=== PATIENT | male | born 1970 | race Caucasian/White ===

== ENCOUNTER → 2016-11-21 | Outpatient (CLI) | payer OTHER ==
[2016-11-21 14:22] LABS: ALBUMIN 3.1 gm/dl (3.1-4.5); ALKALINE PHOSPHATASE 105 U/L (45-117); BILIRUBIN, TOTAL 0.2 mg/dl (0.2-1.0); BUN 27 mg/dl (7-24); CARBON DIOXIDE 29 mmol/L (21-32); CHLORIDE 108 mmol/L (98-107); EST GLOM FILT AFRICAN AMERICAN > 60 ml/min; GLUCOSE 105 mg/dL (65-99); POTASSIUM 4.5 mmol/L (3.5-5.1); SGOT/AST 74 IU/L (3-35); SGPT/ALT 104 U/L (12-78); SODIUM 143 mmol/L (136-145)
[2016-11-22 07:06] LABS: HEPATITIS C VIRUS ANTIBODY 0.1 s/co (0.0-0.9)
== END | disposition home or self-care (01) ==
LOC: LAB 13:01
PROVIDERS: Family Medicine
DX: M54.41 Lumbago with sciatica, right side (principal); M54.42 Lumbago with sciatica, left side; R94.5 Abnormal results of liver function studies

== ENCOUNTER → 2017-01-07 | Outpatient (CLI) | payer OTHER | END | disposition home or self-care (01) | LOC: US 09:48 | DX: R79.89 Other specified abnormal findings of blood chemistry (principal) ==

== ENCOUNTER → 2017-02-03 | Outpatient (CLI) | payer OTHER ==
[2017-02-03 13:57] LABS: ALKALINE PHOSPHATASE 141 U/L (45-117); BILIRUBIN, TOTAL 0.3 mg/dl (0.2-1.0); TOTAL PROTEIN 7.2 gm/dL (6.4-8.2)
[2017-02-03 14:03] LABS: BILIRUBIN, DIRECT < 0.1 mg/dL (0.0-0.2); SGOT/AST 62 IU/L (3-35); SGPT/ALT 112 U/L (12-78)
== END | disposition home or self-care (01) ==
LOC: LAB 13:13
PROVIDERS: Internal Medicine Gastroenterology
DX: R79.89 Other specified abnormal findings of blood chemistry (principal)

== ENCOUNTER → 2017-02-08 | Outpatient (CLI) | payer OTHER | END | disposition home or self-care (01) | LOC: MRI 13:50 | DX: M54.41 Lumbago with sciatica, right side (principal); M54.42 Lumbago with sciatica, left side; E11.40 Type 2 diabetes mellitus with diabetic neuropathy, unspecified ==

== ENCOUNTER → 2017-04-25 | Outpatient (CLI) | payer OTHER ==
[2017-04-25 19:43] LABS: BASO % 0.5 % (0.0-1.0); EOS # 0.2 10*3/uL (0.0-0.4); EOS % 2.5 % (1.0-4.0); HEMATOCRIT 35.8 % (42.0-52.0); HEMOGLOBIN 12.3 g/dl (14.0-18.0); LYMPH # 2.1 10*3/uL (1.3-4.4); LYMPH % 25.5 % (27.0-41.0); MEAN CELL VOLUME 85.9 fl (80.0-94.0); MEAN CORPUSCULAR HGB 29.5 pg (27.0-31.0); MEAN CORPUSCULAR HGB CONC 34.4 g/dl (33.0-37.0); MEAN PLATELET VOLUME 11.5 fl (9.6-12.3); MONO # 0.6 10*3/uL (0.1-1.0); NEUT # 5.3 10*3/uL (2.3-7.9); PLATELET COUNT AUTOMATED 209 10*3/uL (130-400); RED BLOOD COUNT 4.17 10*6/uL (4.50-5.90); RED CELL DISTRI WIDTH 13.9 % (0-14.5); WHITE BLOOD COUNT 8.3 10*3/uL (4.8-10.8)
[2017-04-25 20:05] LABS: ALBUMIN 3.5 gm/dl (3.1-4.5); BILIRUBIN, DIRECT 0.1 mg/dL (0.0-0.2); CREATININE 2.05 mg/dL (0.70-1.30); FREE T4 0.97 ng/dl (0.76-1.46); POTASSIUM 4.8 mmol/L (3.5-5.1); TOTAL PROTEIN 7.7 gm/dL (6.4-8.2)
[2017-04-25 20:10] LABS: THYROID STIM HORMONE (HS) 0.625 uIU/ml (0.358-4.75)
== END | disposition home or self-care (01) ==
LOC: LAB 19:11
PROVIDERS: Nurse Practitioner Family
DX: Z79.899 Other long term (current) drug therapy (principal); E55.9 Vitamin D deficiency, unspecified; E78.00 Pure hypercholesterolemia, unspecified

== ENCOUNTER → 2018-01-27 | Outpatient (CLI) | payer OTHER | END | disposition home or self-care (01) | LOC: LAB 12:56 | DX: M54.41 Lumbago with sciatica, right side (principal); M25.552 Pain in left hip; M25.551 Pain in right hip ==

== ENCOUNTER → 2018-03-02 | Outpatient (CLI) | payer OTHER ==
[2018-03-02 16:09] LABS: ALBUMIN 3.6 gm/dl (3.1-4.5); ALKALINE PHOSPHATASE 138 U/L (45-117); SGOT/AST 57 IU/L (3-35); SGPT/ALT 97 U/L (12-78); TOTAL PROTEIN 8.5 gm/dL (6.4-8.2)
[2018-03-02 16:12] LABS: BILIRUBIN, DIRECT < 0.1 mg/dL (0.0-0.2)
[2018-03-05 07:41] LABS: HBV QUANT 200000000 IU/mL (.); HEP B CORE AB TOTAL 006718 Positive (Negative); HEPATITIS B QNT See Final Results IU/mL (.); HEPATITIS B SURFACE AB 006395 Non Reactive (.); HEPATITIS B SURFACE AG Positive (Negative); HIV 1+2 AB + HIV1 P24 AG Non Reactive (Non Reactive)
[2018-03-05 17:10] LABS: AB TO HEPATITIS Be AG 006635 Negative (Negative)
[2018-03-08 16:12] LABS: HBV LOG10 8.301 (.)
== END | disposition home or self-care (01) ==
LOC: LAB 15:01
PROVIDERS: Specialist
DX: F19.10 Other psychoactive substance abuse, uncomplicated (principal); Z79.899 Other long term (current) drug therapy

== ENCOUNTER → 2018-07-06 | Outpatient (CLI) | payer OTHER ==
[2018-07-06 11:22] LABS: BASO % 0.4 % (0.0-1.0); EOS # 0.4 10*3/uL (0.0-0.4); EOS % 5.1 % (1.0-4.0); HEMATOCRIT 34.9 % (42.0-52.0); HEMOGLOBIN 11.2 g/dl (14.0-18.0); LYMPH % 27.7 % (27.0-41.0); MEAN CELL VOLUME 88.4 fl (80.0-94.0); MEAN CORPUSCULAR HGB 28.4 pg (27.0-31.0); MEAN CORPUSCULAR HGB CONC 32.1 g/dl (33.0-37.0); MEAN PLATELET VOLUME 11.3 fl (9.6-12.3); MONO # 0.7 10*3/uL (0.1-1.0); MONO % 10.1 % (3.0-9.0); NEUT # 4.1 10*3/uL (2.3-7.9); NEUT % 56.3 % (47.0-73.0); PLATELET COUNT AUTOMATED 196 10*3/uL (130-400); RED BLOOD COUNT 3.95 10*6/uL (4.50-5.90); RED CELL DISTRI WIDTH 14.4 % (0-14.5); WHITE BLOOD COUNT 7.2 10*3/uL (4.8-10.8)
[2018-07-06 11:51] LABS: ALBUMIN 3.3 gm/dl (3.1-4.5); CREATININE 2.01 mg/dL (0.70-1.30); POTASSIUM 5.5 mmol/L (3.5-5.1); TOTAL PROTEIN 8.2 gm/dL (6.4-8.2)
[2018-07-09 16:09] LABS: AB TO HEPATITIS Be AG 006635 Negative (Negative)
[2018-07-09 22:10] LABS: HEP B CORE AB TOTAL 006718 Positive (Negative); HEPATITIS Be ANTIGEN 006619 Positive (Negative)
[2018-07-10 00:05] LABS: HBV QUANT 111000000 IU/mL (.); HEPATITIS B QNT See Final Results IU/mL (.)
[2018-07-11 06:14] LABS: HEPATITIS B SURFACE AB 006395 Reactive (.); HEPATITIS B SURFACE AG Positive (Negative)
[2018-07-12 13:05] LABS: HBV LOG10 8.045 (.)
== END | disposition home or self-care (01) ==
LOC: LAB 10:50
PROVIDERS: Specialist
DX: B19.10 Unspecified viral hepatitis B without hepatic coma (principal); R94.5 Abnormal results of liver function studies

== ENCOUNTER → 2018-07-18 | Outpatient (CLI) | payer OTHER | END | disposition home or self-care (01) | LOC: US 11:00 | DX: K76.0 Fatty (change of) liver, not elsewhere classified (principal); B19.10 Unspecified viral hepatitis B without hepatic coma ==

== ENCOUNTER → 2019-06-03 | Outpatient (CLI) | payer OTHER ==
[2019-06-03 10:12] LABS: BASO % 0.4 % (0.0-1.0); EOS # 0.2 10*3/uL (0.0-0.4); EOS % 2.1 % (1.0-4.0); HEMATOCRIT 37.1 % (42.0-52.0); HEMOGLOBIN 12.6 g/dl (14.0-18.0); LYMPH # 1.9 10*3/uL (1.3-4.4); LYMPH % 21.4 % (27.0-41.0); MEAN CELL VOLUME 83.4 fl (80.0-94.0); MEAN CORPUSCULAR HGB 28.3 pg (27.0-31.0); MEAN PLATELET VOLUME 11.1 fl (9.6-12.3); MONO # 0.6 10*3/uL (0.1-1.0); MONO % 6.9 % (3.0-9.0); NEUT # 6.2 10*3/uL (2.3-7.9); NEUT % 68.5 % (47.0-73.0); PLATELET COUNT AUTOMATED 280 10*3/uL (130-400); RED BLOOD COUNT 4.45 10*6/uL (4.50-5.90); RED CELL DISTRI WIDTH 14.4 % (0-14.5); WHITE BLOOD COUNT 9.1 10*3/uL (4.8-10.8)
[2019-06-03 10:37] LABS: POTASSIUM 4.2 mmol/L (3.5-5.1)
[2019-06-03 11:14] LABS: ALBUMIN 2.9 gm/dl (3.1-4.5); TOTAL PROTEIN 7.8 gm/dL (6.4-8.2)
[2019-06-04 11:06] LABS: HEP B CORE AB TOTAL 006718 Positive (Negative)
[2019-06-04 16:08] LABS: AB TO HEPATITIS Be AG 006635 Negative (Negative)
[2019-06-05 07:08] LABS: HEPATITIS B SURFACE AB 006395 Reactive (.); HEPATITIS B SURFACE AG Positive (Negative); HEPATITIS Be ANTIGEN 006619 Positive (Negative)
[2019-06-20 11:06] LABS: HBV LOG10 7.905 (.); HBV QUANT 80300000 IU/mL (.); HEPATITIS B QNT See Final Results IU/mL (.)
== END | disposition home or self-care (01) ==
LOC: LAB 09:12
PROVIDERS: Internal Medicine Gastroenterology
DX: B97.10 Unspecified enterovirus as the cause of diseases classified elsewhere (principal)

== ENCOUNTER → 2019-06-11 | Outpatient (CLI) | payer OTHER | END | disposition home or self-care (01) | LOC: RAD 11:19 | DX: M85.88 Other specified disorders of bone density and structure, other site (principal); S82.91XD Unspecified fracture of right lower leg, subsequent encounter for closed fracture with routine healing; I10 Essential (primary) hypertension; X58.XXXD Exposure to other specified factors, subsequent encounter ==

== ENCOUNTER → 2019-07-01 | Outpatient (CLI) | payer OTHER | END | disposition home or self-care (01) | LOC: US 01:21 | DX: K76.0 Fatty (change of) liver, not elsewhere classified (principal); B19.10 Unspecified viral hepatitis B without hepatic coma; Z90.49 Acquired absence of other specified parts of digestive tract ==

== ENCOUNTER → 2019-07-16 | Outpatient (CLI) | payer OTHER ==
[2019-07-20 10:07] LABS: CREATININE,URINE 91.6 mg/dL (Not Estab.)
[2019-07-22 07:50] LABS: URINE VOLUME 2150 mL
== END | disposition home or self-care (01) ==
LOC: LAB 09:00
PROVIDERS: Internal Medicine Endocrinology, Diabetes & Metabolism
DX: E55.9 Vitamin D deficiency, unspecified (principal); M85.869 Other specified disorders of bone density and structure, unspecified lower leg

== ENCOUNTER → 2019-07-19 | Outpatient (CLI) | payer OTHER ==
[2019-07-19 13:07] LABS: ALBUMIN 2.7 gm/dl (3.1-4.5); CREATININE 1.67 mg/dL (0.70-1.30); PHOSPHOROUS 3.4 mg/dL (2.5-4.9); POTASSIUM 4.4 mmol/L (3.5-5.1); TOTAL PROTEIN 7.2 gm/dL (6.4-8.2)
[2019-07-19 15:22] LABS: PTH INTACT 109.9 pg/mL (18.5-88.0); VITAMIN D, 25-HYDROXY 21.3 ng/mL (30-100)
[2019-07-20 04:08] LABS: TOTAL PROTEIN, SERUM 6.4 g/dL (6.0-8.5)
[2019-07-20 05:10] LABS: IMMUNOGLOBULIN G, QNT 1533 mg/dL (700-1600); IMMUNOGLOBULIN M, QNT 62 mg/dL (20-172)
[2019-07-20 15:10] LABS: t-TRANSGLUTAMINASE (tTG) IGA <2 U/mL (0-3)
[2019-07-21 10:06] LABS: TESTOSTERONE FREE, (DIRECT) 8.3 pg/mL (7.2-24.0)
[2019-07-22 11:06] LABS: A/G RATIO 0.7 (0.7-1.7); ALBUMIN 2.7 g/dL (2.9-4.4); ALPHA-1-GLOBULIN 0.2 g/dL (0.0-0.4); ALPHA-2-GLOBULIN 0.9 g/dL (0.4-1.0); BETA GLOBULIN 1.2 g/dL (0.7-1.3); GAMMA GLOBULIN 1.4 g/dL (0.4-1.8); GLOBULIN, TOTAL 3.7 g/dL (2.2-3.9); M-SPIKE 0.3 g/dL (Not Observed)
[2019-07-22 14:07] LABS: IMMUNOFIXATION RESULT, SERUM Comment: (.)
== END | disposition home or self-care (01) ==
LOC: LAB 10:53
PROVIDERS: Internal Medicine Endocrinology, Diabetes & Metabolism
DX: M85.869 Other specified disorders of bone density and structure, unspecified lower leg (principal); E11.69 Type 2 diabetes mellitus with other specified complication; E55.9 Vitamin D deficiency, unspecified

== ENCOUNTER → 2019-08-30 | Outpatient (CLI) | payer OTHER ==
[2019-08-30 15:07] LABS: BILIRUBIN NEGATIVE (NEGATIVE); BLOOD 2+ (NEGATIVE); CLARITY CLEAR (CLEAR); COLOR YELLOW (YELLOW); GLUCOSE TRACE (NEGATIVE); KETONE NEGATIVE (NEGATIVE); LEUKO ESTERASE NEGATIVE (NEGATIVE); NITRITE NEGATIVE (NEGATIVE); SPECIFIC GRAVITY >= 1.030 (1.005-1.030); UROBILINOGEN 0.2 E.U./dl (0.2-1.0)
[2019-08-30 15:21] LABS: WBC 0-2 wbc/hpf (0-5)
[2019-08-30 15:22] LABS: BACTERIA 2+; EPITHELIAL CELLS 0-2; MUCOUS TRACE
[2019-08-30 15:29] LABS: ALBUMIN 2.4 gm/dl (3.1-4.5); CREATININE 2.29 mg/dL (0.70-1.30); PHOSPHOROUS 3.6 mg/dL (2.5-4.9); POTASSIUM 4.4 mmol/L (3.5-5.1)
[2019-08-31 10:07] LABS: MICRO ALBUMIN/CRE RATIO 4802.1 (0.0-30.0)
== END | disposition home or self-care (01) ==
LOC: LAB 13:41
PROVIDERS: Family Medicine
DX: E11.22 Type 2 diabetes mellitus with diabetic chronic kidney disease (principal); N18.3 Chronic kidney disease, stage 3 (moderate)

== ENCOUNTER 2019-11-07 06:41 | Emergency (ER) | payer OTHER ==
[~2019-11-07] VITALS: Ht 177.8 cm; Wt 136.1 kg
[2019-11-07 07:03] LABS: BASO % 0.3 % (0.0-1.0); EOS # 0.2 10*3/uL (0.0-0.4); EOS % 1.8 % (1.0-4.0); HEMATOCRIT 32.4 % (42.0-52.0); HEMOGLOBIN 10.9 g/dl (14.0-18.0); LYMPH # 1.7 10*3/uL (1.3-4.4); LYMPH % 14.6 % (27.0-41.0); MEAN CELL VOLUME 83.5 fl (80.0-94.0); MEAN CORPUSCULAR HGB 28.1 pg (27.0-31.0); MEAN CORPUSCULAR HGB CONC 33.6 g/dl (33.0-37.0); MEAN PLATELET VOLUME 10.4 fl (9.6-12.3); MONO % 8.8 % (3.0-9.0); NEUT # 8.7 10*3/uL (2.3-7.9); NEUT % 74.2 % (47.0-73.0); PLATELET COUNT AUTOMATED 320 10*3/uL (130-400); RED BLOOD COUNT 3.88 10*6/uL (4.50-5.90); RED CELL DISTRI WIDTH 14.2 % (0-14.5); WHITE BLOOD COUNT 11.7 10*3/uL (4.8-10.8)
[2019-11-07 07:12] LABS: ACT PARTIAL THROMBO TIME 29.5 SECONDS (20.0-32.1); INTERNATIONAL NORM RATIO 1.1 (2.0-3.5)
[2019-11-07 07:23] LABS: ALBUMIN 2.3 gm/dl (3.1-4.5); CREATININE 2.72 mg/dL (0.70-1.30); POTASSIUM 3.9 mmol/L (3.5-5.1); TOTAL PROTEIN 6.9 gm/dL (6.4-8.2)
[2019-11-07 07:30] LABS: TROPONIN I 0.474 ng/ml (<0.045)
[2019-11-07 09:32] VITALS: BP 156/76
== END 2019-11-07 09:44 | disposition short-term general hospital (02) ==
LOC: ED 06:41
PROVIDERS: Emergency Medicine
DX: I21.4 Non-ST elevation (NSTEMI) myocardial infarction (principal); J18.1 Lobar pneumonia, unspecified organism; E66.01 Morbid (severe) obesity due to excess calories; E11.9 Type 2 diabetes mellitus without complications; I11.0 Hypertensive heart disease with heart failure; I50.9 Heart failure, unspecified; E78.00 Pure hypercholesterolemia, unspecified; Z88.0 Allergy status to penicillin; Z88.2 Allergy status to sulfonamides

== ENCOUNTER 2020-03-27 14:56 | Inpatient (IN) | payer OTHER ==
[~2020-03-27] VITALS: Ht 177.8 cm; Wt 127.2 kg
[2020-03-27 15:02] VITALS: BP 189/88
[2020-03-27 16:15] VITALS: BP 144/76
[2020-03-27 16:45] VITALS: BP 137/63
[2020-03-27] MEDS ORDERED: POTASSIUM CHLO20 ME4 PO (16:59)
[2020-03-27] MEDS ORDERED: IMDUR SA30 MG PO (16:59)
[2020-03-27] MEDS ORDERED: NEURONTIN300 MG PO ×2 (17:00→21:10)
[2020-03-27] MEDS ORDERED: Zaroxolyn,Diul2.5 MG PO (17:00)
[2020-03-27 17:57] LABS: BILIRUBIN NEGATIVE (NEGATIVE); BLOOD 1+ (NEGATIVE); CLARITY CLEAR (CLEAR); COLOR YELLOW (YELLOW); GLUCOSE 3+ (NEGATIVE); KETONE NEGATIVE (NEGATIVE); LEUKO ESTERASE NEGATIVE (NEGATIVE); NITRITE NEGATIVE (NEGATIVE); SPECIFIC GRAVITY 1.015 (1.005-1.030); UROBILINOGEN 0.2 E.U./dl (0.2-1.0)
[2020-03-27 18:02] LABS: BACTERIA 1+; WBC 0-2 wbc/hpf (0-5)
[2020-03-27 18:04] LABS: URINE CREATININE RANDOM 59.1 mg/dL
[2020-03-27] MEDS ORDERED: NATURE'S BLEND500 M6 PO (18:44)
[2020-03-27 20:00] VITALS: BP 137/59
[2020-03-27] MEDS ORDERED: METOPROLOL SUCC25 M2 PO (21:03)
[2020-03-27] MEDS ORDERED: HYDR25T PO (21:03)
[2020-03-27] MEDS ORDERED: OMEPRAZOLE40 MG PO (21:04)
[2020-03-27] MEDS ORDERED: SERTRALINE HYD100 MG PO (21:05)
[2020-03-27] MEDS ORDERED: VITAMIN D350 MC2 PO (21:06)
[2020-03-27] MEDS ORDERED: AMLODIPINE-BEN1 EAC3 PO (21:07)
[2020-03-27] MEDS ORDERED: CETIRIZINE HYDR10 MG PO (21:08)
[2020-03-27] MEDS ORDERED: LIPITOR20 MG PO (21:08)
[2020-03-27] MEDS ORDERED: DICYCLOMINE HCL10 MG PO (21:09)
[2020-03-27] MEDS ORDERED: LASIX40 MG PO (21:10)
[2020-03-28] VITALS: BP 152/82
[2020-03-28 06:12] LABS: BASO % 0.5 % (0.0-1.0); EOS # 0.2 10*3/uL (0.0-0.4); HEMATOCRIT 27.2 % (42.0-52.0); LYMPH # 1.9 10*3/uL (1.3-4.4); LYMPH % 33.3 % (27.0-41.0); MEAN CORPUSCULAR HGB 28.8 pg (27.0-31.0); MEAN CORPUSCULAR HGB CONC 33.8 g/dl (33.0-37.0); MEAN PLATELET VOLUME 10.9 fl (9.6-12.3); MONO # 0.7 10*3/uL (0.1-1.0); NEUT # 2.8 10*3/uL (2.3-7.9); NEUT % 50.8 % (47.0-73.0); PLATELET COUNT AUTOMATED 212 10*3/uL (130-400); RED CELL DISTRI WIDTH 13.6 % (0-14.5); WHITE BLOOD COUNT 5.6 10*3/uL (4.8-10.8)
[2020-03-28 06:39] LABS: ALBUMIN 2.7 gm/dl (3.1-4.5); CREATININE 4.2 mg/dL (0.70-1.30); FREE T4 1.04 ng/dl (0.76-1.46); POTASSIUM 4.8 mmol/L (3.5-5.1); TOTAL PROTEIN 7.1 gm/dL (6.4-8.2)
[2020-03-28 06:43] LABS: THYROID STIM HORMONE (HS) 1.36 uIU/ml (0.358-4.75)
[2020-03-28 06:59] LABS: VITAMIN D, 25-HYDROXY 30.2 ng/mL (30-100)
[2020-03-28 08:00] VITALS: BP 158/92
[2020-03-28 08:13] VITALS: BP 158/92
[2020-03-28 12:00] VITALS: BP 123/98
[2020-03-28] MEDS ORDERED: LANTUS SOL100 UNIT/1 SC (13:49)
[2020-03-28 16:00] VITALS: BP 153/75
[2020-03-28 20:00] VITALS: BP 139/84
[2020-03-29] VITALS: BP 153/82
[2020-03-29 06:35] LABS: CREATININE 3.62 mg/dL (0.70-1.30); POTASSIUM 4.7 mmol/L (3.5-5.1)
[2020-03-29 08:00] VITALS: BP 164/69
[2020-03-29 12:00] VITALS: BP 180/88
[2020-03-29 16:00] VITALS: BP 126/52
== END 2020-03-29 16:59 | disposition home or self-care (01) | DRG 469 ==
LOC: ED 14:56 → EDHOLD 15:55 → 5E 16:15
PROVIDERS: Registered Nurse; Student in an Organized Health Care Education/Training Program; ADMIT Internal Medicine
DX: N17.0 Acute kidney failure with tubular necrosis (principal); N18.4 Chronic kidney disease, stage 4 (severe); I12.9 Hypertensive chronic kidney disease with stage 1 through stage 4 chronic kidney disease, or unspecified chronic kidney disease; I25.10 Atherosclerotic heart disease of native coronary artery without angina pectoris; E78.2 Mixed hyperlipidemia; K21.9 Gastro-esophageal reflux disease without esophagitis; H40.9 Unspecified glaucoma; E11.65 Type 2 diabetes mellitus with hyperglycemia; E11.40 Type 2 diabetes mellitus with diabetic neuropathy, unspecified; E11.22 Type 2 diabetes mellitus with diabetic chronic kidney disease; G89.29 Other chronic pain; N25.81 Secondary hyperparathyroidism of renal origin; D64.9 Anemia, unspecified; R80.9 Proteinuria, unspecified; E87.1 Hypo-osmolality and hyponatremia; Z88.0 Allergy status to penicillin; Z88.7 Allergy status to serum and vaccine; Z90.49 Acquired absence of other specified parts of digestive tract; Z82.49 Family history of ischemic heart disease and other diseases of the circulatory system; E43 Unspecified severe protein-calorie malnutrition; Z68.41 Body mass index [BMI] 40.0-44.9, adult; E83.51 Hypocalcemia; E87.8 Other disorders of electrolyte and fluid balance, not elsewhere classified; E83.39 Other disorders of phosphorus metabolism

== ENCOUNTER → 2020-03-27 | Outpatient (CLI) | payer OTHER ==
[~2020-03-27] MED LIST: AMLODIPINE-BEN1 EAC3 PO; CETIRIZINE HYDR10 MG PO; DICYCLOMINE HCL10 MG PO; HYDR25T PO; IMDUR SA30 MG PO; LANTUS SOL100 UNIT/1 SC; LASIX40 MG PO; LIPITOR20 MG PO; METOPROLOL SUCC25 M2 PO; NATURE'S BLEND500 M6 PO; NEURONTIN300 MG PO; OMEPRAZOLE40 MG PO; POTASSIUM CHLO20 ME4 PO; SERTRALINE HYD100 MG PO; VITAMIN D350 MC2 PO; Zaroxolyn,Diul2.5 MG PO
[2020-03-27 10:03] LABS: BASO % 0.3 % (0.0-1.0); EOS # 0.2 10*3/uL (0.0-0.4); EOS % 2.5 % (1.0-4.0); HEMATOCRIT 30.9 % (42.0-52.0); LYMPH # 2.3 10*3/uL (1.3-4.4); LYMPH % 32.8 % (27.0-41.0); MEAN CELL VOLUME 85.4 fl (80.0-94.0); MEAN CORPUSCULAR HGB 28.7 pg (27.0-31.0); MEAN CORPUSCULAR HGB CONC 33.7 g/dl (33.0-37.0); MONO # 0.7 10*3/uL (0.1-1.0); MONO % 9.4 % (3.0-9.0); NEUT # 3.9 10*3/uL (2.3-7.9); NEUT % 54.6 % (47.0-73.0); PLATELET COUNT AUTOMATED 296 10*3/uL (130-400); RED BLOOD COUNT 3.62 10*6/uL (4.50-5.90); RED CELL DISTRI WIDTH 13.9 % (0-14.5); WHITE BLOOD COUNT 7.1 10*3/uL (4.8-10.8)
[2020-03-27 10:38] LABS: ALBUMIN 3.1 gm/dl (3.1-4.5); POTASSIUM 4.4 mmol/L (3.5-5.1)
[2020-03-27 10:43] LABS: VITAMIN D, 25-HYDROXY 40.5 ng/mL (30-100)
[2020-03-27 10:47] LABS: CREATININE 4.27 mg/dL (0.70-1.30); FREE T4 0.85 ng/dl (0.76-1.46); THYROID STIM HORMONE (HS) 1.76 uIU/ml (0.358-4.75); THYROXINE (T4) TOTAL 7.5 ug/dl (4.5-12.1); TOTAL PROTEIN 8.1 gm/dL (6.4-8.2)
[2020-03-28 08:08] LABS: CREATININE,URINE 87.4 mg/dL (Not Estab.); IMMUNOGLOBULIN G, QNT 1716 mg/dL (603-1613); IMMUNOGLOBULIN M, QNT 78 mg/dL (20-172); TOTAL PROTEIN, SERUM 7.2 g/dL (6.0-8.5)
== END | disposition home or self-care (01) ==
LOC: LAB 08:57
PROVIDERS: Internal Medicine Endocrinology, Diabetes & Metabolism; Nurse Practitioner Primary Care
DX: E11.22 Type 2 diabetes mellitus with diabetic chronic kidney disease (principal); N18.3 Chronic kidney disease, stage 3 (moderate); E11.69 Type 2 diabetes mellitus with other specified complication; E78.2 Mixed hyperlipidemia; E55.9 Vitamin D deficiency, unspecified; N25.81 Secondary hyperparathyroidism of renal origin; M00-M99 Diseases of the musculoskeletal system and connective tissue; R94.6 Abnormal results of thyroid function studies

== ENCOUNTER → 2020-04-03 | Outpatient (CLI) | payer OTHER ==
[2020-04-03 10:11] LABS: CREATININE 3.38 mg/dL (0.70-1.30); POTASSIUM 4.9 mmol/L (3.5-5.1)
[2020-04-04 09:10] LABS: CREATININE,URINE 57.3 mg/dL (Not Estab.)
[2020-04-04 10:36] LABS: URINE VOLUME 2775 mL 24 hr
== END | disposition home or self-care (01) ==
LOC: LAB 09:09
PROVIDERS: Internal Medicine Endocrinology, Diabetes & Metabolism; Student in an Organized Health Care Education/Training Program
DX: N17.9 Acute kidney failure, unspecified (principal); M85.869 Other specified disorders of bone density and structure, unspecified lower leg

== ENCOUNTER 2020-04-07 14:26 | Emergency (ER) | payer OTHER ==
[~2020-04-07] VITALS: Ht 177.8 cm; Wt 127.9 kg
[2020-04-07 15:07] LABS: BASO % 0.3 % (0.0-1.0); EOS # 0.2 10*3/uL (0.0-0.4); EOS % 3.1 % (1.0-4.0); LYMPH # 1.8 10*3/uL (1.3-4.4); LYMPH % 22.8 % (27.0-41.0); MEAN CELL VOLUME 89.4 fl (80.0-94.0); MEAN CORPUSCULAR HGB 29.1 pg (27.0-31.0); MEAN CORPUSCULAR HGB CONC 32.6 g/dl (33.0-37.0); MONO # 0.7 10*3/uL (0.1-1.0); MONO % 8.6 % (3.0-9.0); NEUT % 64.9 % (47.0-73.0); PLATELET COUNT AUTOMATED 195 10*3/uL (130-400); RED BLOOD COUNT 3.02 10*6/uL (4.50-5.90); RED CELL DISTRI WIDTH 14.2 % (0-14.5); WHITE BLOOD COUNT 7.7 10*3/uL (4.8-10.8)
[2020-04-07 15:18] LABS: ACT PARTIAL THROMBO TIME 28.1 SECONDS (20.0-32.1); INTERNATIONAL NORM RATIO 1.1 (2.0-3.5)
[2020-04-07 15:28] LABS: ALBUMIN 2.7 gm/dl (3.1-4.5); CREATININE 3.86 mg/dL (0.70-1.30); POTASSIUM 5.6 mmol/L (3.5-5.1); TOTAL PROTEIN 7.4 gm/dL (6.4-8.2)
[2020-04-07 15:52] VITALS: BP 148/88
== END 2020-04-07 19:31 | disposition short-term general hospital (02) ==
LOC: ED 14:26
PROVIDERS: Emergency Medicine
DX: I21.4 Non-ST elevation (NSTEMI) myocardial infarction (principal); I25.10 Atherosclerotic heart disease of native coronary artery without angina pectoris; E11.22 Type 2 diabetes mellitus with diabetic chronic kidney disease; N18.4 Chronic kidney disease, stage 4 (severe); K21.9 Gastro-esophageal reflux disease without esophagitis; E78.5 Hyperlipidemia, unspecified; E87.5 Hyperkalemia; N17.9 Acute kidney failure, unspecified; Z88.2 Allergy status to sulfonamides; Z88.0 Allergy status to penicillin; Z79.899 Other long term (current) drug therapy

== ENCOUNTER → 2020-06-22 | Outpatient (CLI) | payer OTHER ==
[2020-06-22 14:13] LABS: BASO % 0.4 % (0.0-1.0); EOS # 0.3 10*3/uL (0.0-0.4); EOS % 3.3 % (1.0-4.0); HEMATOCRIT 32.6 % (42.0-52.0); LYMPH # 1.9 10*3/uL (1.3-4.4); LYMPH % 25.5 % (27.0-41.0); MEAN CELL VOLUME 84.2 fl (80.0-94.0); MEAN CORPUSCULAR HGB 27.9 pg (27.0-31.0); MEAN CORPUSCULAR HGB CONC 33.1 g/dl (33.0-37.0); MEAN PLATELET VOLUME 10.4 fl (9.6-12.3); MONO # 0.7 10*3/uL (0.1-1.0); MONO % 9.6 % (3.0-9.0); NEUT # 4.6 10*3/uL (2.3-7.9); NEUT % 60.8 % (47.0-73.0); PLATELET COUNT AUTOMATED 271 10*3/uL (130-400); RED BLOOD COUNT 3.87 10*6/uL (4.50-5.90); RED CELL DISTRI WIDTH 13.3 % (0-14.5); WHITE BLOOD COUNT 7.6 10*3/uL (4.8-10.8)
[2020-06-22 14:18] LABS: BILIRUBIN Negative (Negative); BLOOD 1+ (Negative); CLARITY Clear (Clear); COLOR Yellow (Yellow); GLUCOSE 1+ (Negative); KETONE Negative (Negative); LEUKO ESTERASE Negative (Negative); NITRITE Negative (Negative); UROBILINOGEN 0.2 E.U./dl (0.0-1.0)
[2020-06-22 14:22] LABS: URINE CREATININE RANDOM 66.2 mg/dL
[2020-06-22 14:30] LABS: WBC 0-2 wbc/hpf (0-5)
[2020-06-22 14:46] LABS: ALBUMIN 3.1 gm/dl (3.1-4.5); CREATININE 4.25 mg/dL (0.70-1.30)
[2020-06-22 15:21] LABS: FERRITIN 95.2 ng/mL (22.0-322.0); PTH INTACT 239.6 pg/mL (18.5-88.0); VITAMIN D, 25-HYDROXY 42.1 ng/mL (30-100)
== END | disposition home or self-care (01) ==
LOC: LAB 13:47
PROVIDERS: Internal Medicine Nephrology; ATTEND Internal Medicine Endocrinology, Diabetes & Metabolism
DX: N18.30 Chronic kidney disease, stage 3 unspecified (principal); M85.869 Other specified disorders of bone density and structure, unspecified lower leg

== ENCOUNTER → 2020-09-16 | Outpatient (CLI) | payer OTHER ==
[2020-09-16 10:01] LABS: HEMATOCRIT 28.1 % (42.0-52.0); MEAN CELL VOLUME 88.9 fl (80.0-94.0); MEAN CORPUSCULAR HGB 29.1 pg (27.0-31.0); MEAN CORPUSCULAR HGB CONC 32.7 g/dl (33.0-37.0); MEAN PLATELET VOLUME 10.6 fl (9.6-12.3); PLATELET COUNT AUTOMATED 242 10*3/uL (130-400); RED BLOOD COUNT 3.16 10*6/uL (4.50-5.90); RED CELL DISTRI WIDTH 14.5 % (0-14.5); WHITE BLOOD COUNT 13.5 10*3/uL (4.8-10.8)
[2020-09-16 10:07] LABS: BILIRUBIN Negative (Negative); BLOOD 1+ (Negative); CLARITY Clear (Clear); COLOR Yellow (Yellow); GLUCOSE 1+ (Negative); KETONE Negative (Negative); LEUKO ESTERASE Negative (Negative); NITRITE Negative (Negative); SPECIFIC GRAVITY 1.015 (1.001-1.030); UROBILINOGEN 0.2 E.U./dl (0.0-1.0)
[2020-09-16 10:16] LABS: URINE CREATININE RANDOM 74.7 mg/dL
[2020-09-16 10:25] LABS: CREATININE 5.04 mg/dL (0.70-1.30); POTASSIUM 5.1 mmol/L (3.5-5.1)
[2020-09-16 10:37] LABS: BACTERIA TRACE
[2020-09-16 10:40] LABS: BASOPHILS 1 % (0-1); PLATELET SUFFICIENCY NORMAL (NORMAL); TOTAL CELLS COUNTED 100 #CELLS
[2020-09-16 11:21] LABS: FERRITIN 117.9 ng/mL (22.0-322.0); PTH INTACT 185.1 pg/mL (18.5-88.0); VITAMIN D, 25-HYDROXY 24.5 ng/mL (30-100)
== END | disposition home or self-care (01) ==
LOC: LAB 09:36
PROVIDERS: ATTEND Internal Medicine Nephrology
DX: E11.21 Type 2 diabetes mellitus with diabetic nephropathy (principal); N18.5 Chronic kidney disease, stage 5; D63.1 Anemia in chronic kidney disease; N25.81 Secondary hyperparathyroidism of renal origin

== ENCOUNTER → 2021-02-22 | Outpatient (CLI) | payer OTHER ==
[~2021-02-22] MED LIST changes: +ASPIRIN ADULT L81 M2 PO; +ATORVASTATIN CA80 M1 PO; +AURYXIA210 MG PO; +BRILINTA90 M1 PO; +BUSPAR5 MG PO; +CEFTRIAXON2 GM/50 ML IV; +COSOPT 2%-0.5%10 ML OPH; +CYCLOBENZAPRINE10 MG PO; +DECADRON6 M1 PO; +NITROSTAT0.4 MG SL; +NOVOLOG MIX 70/33 ML SC; +OZEMPIC1 MG/0.75 SQ; +SODIUM BICARBO650 MG PO
[2021-02-22 15:18] LABS: BILIRUBIN Negative (Negative); BLOOD Trace-Intact (Negative); CLARITY Clear (Clear); COLOR Yellow (Yellow); GLUCOSE 1+ (Negative); KETONE Negative (Negative); LEUKO ESTERASE Negative (Negative); NITRITE Negative (Negative); PH 5.5 (4.5-8.0); SPECIFIC GRAVITY 1.015 (1.001-1.030)
[2021-02-22 15:18] LABS: BASO % 0.3 % (0.0-1.0); EOS # 0.2 10*3/uL (0.0-0.4); EOS % 3.6 % (1.0-4.0); HEMATOCRIT 31.1 % (42.0-52.0); LYMPH # 1.3 10*3/uL (1.3-4.4); LYMPH % 21.8 % (27.0-41.0); MEAN CELL VOLUME 89.4 fl (80.0-94.0); MEAN CORPUSCULAR HGB 29.3 pg (27.0-31.0); MEAN CORPUSCULAR HGB CONC 32.8 g/dl (33.0-37.0); MEAN PLATELET VOLUME 10.7 fl (9.6-12.3); MONO # 0.7 10*3/uL (0.1-1.0); MONO % 11.2 % (3.0-9.0); NEUT # 3.7 10*3/uL (2.3-7.9); NEUT % 62.8 % (47.0-73.0); PLATELET COUNT AUTOMATED 255 10*3/uL (130-400); RED BLOOD COUNT 3.48 10*6/uL (4.50-5.90); RED CELL DISTRI WIDTH 13.6 % (0-14.5); WHITE BLOOD COUNT 5.8 10*3/uL (4.8-10.8)
[2021-02-22 15:24] LABS: BACTERIA TRACE; YEAST TRACE
[2021-02-22 15:26] LABS: URINE CREATININE RANDOM 95.4 mg/dL
[2021-02-22 16:04] LABS: ALBUMIN 3.3 gm/dl (3.1-4.5); CREATININE 5.19 mg/dL (0.70-1.30); POTASSIUM 4.6 mmol/L (3.5-5.1)
[2021-02-22 16:11] LABS: FERRITIN 505.7 ng/mL (22.0-322.0); VITAMIN D, 25-HYDROXY 29.6 ng/mL (30-100)
[2021-02-22 16:12] LABS: PTH INTACT 387.4 pg/mL (18.5-88.0)
[2021-02-23 09:07] LABS: HEP B CORE AB, IGM Indeterminate (Negative); HEPATITIS B SURFACE AB Non Reactive (.); HEPATITIS B SURFACE AG Positive (Negative); HEPATITIS C VIRUS ANTIBODY <0.1 s/co (0.0-0.9)
== END | disposition home or self-care (01) ==
LOC: LAB 14:47
PROVIDERS: ATTEND Internal Medicine Nephrology
DX: N18.5 Chronic kidney disease, stage 5 (principal); E11.21 Type 2 diabetes mellitus with diabetic nephropathy; D63.1 Anemia in chronic kidney disease; N25.81 Secondary hyperparathyroidism of renal origin

== ENCOUNTER 2021-03-14 11:52 | Inpatient (IN) | payer OTHER ==
[~2021-03-14] VITALS: Ht 177.8 cm; Wt 126.8 kg
[2021-03-14] VITALS (10 sets, daily range): BP systolic 123–180; BP diastolic 39–93
[2021-03-14 12:11] LABS: BASO % 0.3 % (0.0-1.0); EOS # 0.2 10*3/uL (0.0-0.4); EOS % 1.4 % (1.0-4.0); HEMATOCRIT 27.6 % (42.0-52.0); LYMPH # 1.2 10*3/uL (1.3-4.4); LYMPH % 9.1 % (27.0-41.0); MEAN CELL VOLUME 90.5 fl (80.0-94.0); MEAN CORPUSCULAR HGB 29.5 pg (27.0-31.0); MEAN CORPUSCULAR HGB CONC 32.6 g/dl (33.0-37.0); MEAN PLATELET VOLUME 10.5 fl (9.6-12.3); MONO # 1.3 10*3/uL (0.1-1.0); MONO % 10.1 % (3.0-9.0); NEUT % 78.6 % (47.0-73.0); PLATELET COUNT AUTOMATED 293 10*3/uL (130-400); RED BLOOD COUNT 3.05 10*6/uL (4.50-5.90); WHITE BLOOD COUNT 12.8 10*3/uL (4.8-10.8)
[2021-03-14 12:27] LABS: ALBUMIN 2.9 gm/dl (3.1-4.5); CREATININE 6.28 mg/dL (0.70-1.30); POTASSIUM 4.6 mmol/L (3.5-5.1); TOTAL PROTEIN 8.5 gm/dL (6.4-8.2)
[2021-03-14 14:14] LABS: ACT PARTIAL THROMBO TIME 30.3 SECONDS (20.0-32.1); INTERNATIONAL NORM RATIO 1.2 (2.0-3.5)
[2021-03-14] MEDS ORDERED: LOPRESSOR25 MG PO (16:08)
[2021-03-14] MEDS ORDERED: LATANOPROST2.5 ML OP (16:09)
[2021-03-14] MEDS ORDERED: NOVOLOG FL100 UNIT/2 SQ (16:11)
[2021-03-14] MEDS ORDERED: COLESTIPOL HYDRO1 GM PO (16:32)
[2021-03-14] MEDS ORDERED: FREESTYLE LIBR1 EAC2 MC (16:36)
[2021-03-14] MEDS ORDERED: NON-ASPIRIN PA325 M2 PO (16:37)
[2021-03-14] MEDS ORDERED: ATARAX,VISTARIL50 MG PO (16:37)
[2021-03-14] MEDS ORDERED: METOPROLOL SUCC50 M1 PO (16:38)
[2021-03-15 04:00] VITALS: BP 153/79
[2021-03-15 06:02] LABS: BASO % 0.2 % (0.0-1.0); EOS # 0.1 10*3/uL (0.0-0.4); EOS % 0.9 % (1.0-4.0); HEMATOCRIT 24.7 % (42.0-52.0); LYMPH # 1.5 10*3/uL (1.3-4.4); LYMPH % 14.1 % (27.0-41.0); MEAN CELL VOLUME 91.1 fl (80.0-94.0); MEAN CORPUSCULAR HGB 29.5 pg (27.0-31.0); MEAN CORPUSCULAR HGB CONC 32.4 g/dl (33.0-37.0); MEAN PLATELET VOLUME 10.6 fl (9.6-12.3); MONO # 1.2 10*3/uL (0.1-1.0); MONO % 10.5 % (3.0-9.0); NEUT # 8.1 10*3/uL (2.3-7.9); NEUT % 73.7 % (47.0-73.0); PLATELET COUNT AUTOMATED 222 10*3/uL (130-400); RED BLOOD COUNT 2.71 10*6/uL (4.50-5.90); RED CELL DISTRI WIDTH 14.1 % (0-14.5)
[2021-03-15 06:32] LABS: ALBUMIN 2.5 gm/dl (3.1-4.5); CREATININE 6.42 mg/dL (0.70-1.30); POTASSIUM 4.2 mmol/L (3.5-5.1); TOTAL PROTEIN 7.8 gm/dL (6.4-8.2)
[2021-03-15 08:00] VITALS: BP 135/55
[2021-03-15 12:00] VITALS: BP 121/81
[2021-03-15 16:00] VITALS: BP 123/85
[2021-03-15 20:00] VITALS: BP 151/100
[2021-03-15 22:18] LABS: ABG BASE EXCESS -4.7 mmol/L (-2.0-2.0); ARTERIAL BLOOD GAS PH 7.322 (7.35-7.45)
[2021-03-15 22:20] LABS: ARTERIAL BLOOD GAS PO2 30.3 (80-90)
[2021-03-15 22:40] LABS: ABG BASE EXCESS -5.4 mmol/L (-2.0-2.0); ARTERIAL BLOOD GAS PH 7.329 (7.35-7.45); ARTERIAL BLOOD GAS PO2 84.9 (80-90)
[2021-03-16] VITALS: BP 172/91
[2021-03-16 04:00] VITALS: BP 155/61
[2021-03-16 05:39] LABS: POTASSIUM 4.6 mmol/L (3.5-5.1)
[2021-03-16 05:46] LABS: ALBUMIN 2.5 gm/dl (3.1-4.5); CREATININE 6.53 mg/dL (0.70-1.30); TOTAL PROTEIN 8.1 gm/dL (6.4-8.2)
[2021-03-16 06:04] LABS: BASO % 0.2 % (0.0-1.0); EOS # 0.1 10*3/uL (0.0-0.4); EOS % 0.8 % (1.0-4.0); HEMATOCRIT 25.4 % (42.0-52.0); LYMPH % 7.7 % (27.0-41.0); MEAN CELL VOLUME 91.7 fl (80.0-94.0); MEAN CORPUSCULAR HGB 29.6 pg (27.0-31.0); MEAN CORPUSCULAR HGB CONC 32.3 g/dl (33.0-37.0); MEAN PLATELET VOLUME 11.5 fl (9.6-12.3); NEUT # 10.4 10*3/uL (2.3-7.9); NEUT % 82.7 % (47.0-73.0); PLATELET COUNT AUTOMATED 259 10*3/uL (130-400); RED BLOOD COUNT 2.77 10*6/uL (4.50-5.90); RED CELL DISTRI WIDTH 14.4 % (0-14.5); WHITE BLOOD COUNT 12.6 10*3/uL (4.8-10.8)
[2021-03-16 08:00] VITALS: BP 137/86
[2021-03-16 10:59] LABS: BILIRUBIN Negative (Negative); BLOOD Negative (Negative); CLARITY Cloudy (Clear); COLOR Yellow (Yellow); GLUCOSE 1+ (Negative); KETONE Negative (Negative); LEUKO ESTERASE Negative (Negative); NITRITE Negative (Negative); SPECIFIC GRAVITY 1.015 (1.001-1.030); UROBILINOGEN 0.2 E.U./dl (0.0-1.0)
[2021-03-16 12:00] VITALS: BP 154/83
[2021-03-16 12:24] LABS: BACTERIA 2+
[2021-03-16 16:00] VITALS: BP 164/83
[2021-03-16 20:00] VITALS: BP 130/66
[2021-03-17] VITALS (8 sets, daily range): BP systolic 119–157; BP diastolic 62–87
[2021-03-17 04:41] LABS: BASO % 0.2 % (0.0-1.0); EOS # 0.5 10*3/uL (0.0-0.4); LYMPH # 1.7 10*3/uL (1.3-4.4); LYMPH % 16.2 % (27.0-41.0); MEAN CORPUSCULAR HGB 29.6 pg (27.0-31.0); MEAN CORPUSCULAR HGB CONC 32.2 g/dl (33.0-37.0); MEAN PLATELET VOLUME 10.9 fl (9.6-12.3); MONO # 0.9 10*3/uL (0.1-1.0); NEUT # 7.1 10*3/uL (2.3-7.9); NEUT % 68.9 % (47.0-73.0); PLATELET COUNT AUTOMATED 243 10*3/uL (130-400); RED CELL DISTRI WIDTH 14.6 % (0-14.5); WHITE BLOOD COUNT 10.3 10*3/uL (4.8-10.8)
[2021-03-17 05:04] LABS: ALBUMIN 2.2 gm/dl (3.1-4.5); CREATININE 5.68 mg/dL (0.70-1.30); POTASSIUM 3.9 mmol/L (3.5-5.1); TOTAL PROTEIN 7.5 gm/dL (6.4-8.2)
[2021-03-17 07:06] LABS: HEP B CORE AB TOTAL Positive (Negative); HEPATITIS B SURFACE AB Non Reactive (.); HEPATITIS B SURFACE AG Positive (Negative)
[2021-03-17 11:54] LABS: BASO % 0.3 % (0.0-1.0); EOS # 0.4 10*3/uL (0.0-0.4); EOS % 3.5 % (1.0-4.0); LYMPH # 1.2 10*3/uL (1.3-4.4); LYMPH % 10.2 % (27.0-41.0); MEAN CORPUSCULAR HGB 29.4 pg (27.0-31.0); MEAN CORPUSCULAR HGB CONC 33.5 g/dl (33.0-37.0); MEAN PLATELET VOLUME 10.7 fl (9.6-12.3); MONO # 1.1 10*3/uL (0.1-1.0); MONO % 9.3 % (3.0-9.0); NEUT # 8.8 10*3/uL (2.3-7.9); NEUT % 76.3 % (47.0-73.0); PLATELET COUNT AUTOMATED 265 10*3/uL (130-400); RED BLOOD COUNT 2.96 10*6/uL (4.50-5.90); RED CELL DISTRI WIDTH 14.2 % (0-14.5); WHITE BLOOD COUNT 11.5 10*3/uL (4.8-10.8)
[2021-03-17 11:55] LABS: MEAN CELL VOLUME 87.8 fl (80.0-94.0)
[2021-03-17 23:59] LABS: ALBUMIN 2.3 gm/dl (3.1-4.5); CREATININE 4.94 mg/dL (0.70-1.30); TOTAL PROTEIN 7.5 gm/dL (6.4-8.2)
[2021-03-18] VITALS (13 sets, daily range): BP systolic 120–169; BP diastolic 52–84
[2021-03-18 06:07] LABS: ALBUMIN 2.1 gm/dl (3.1-4.5); CREATININE 5.2 mg/dL (0.70-1.30); POTASSIUM 3.9 mmol/L (3.5-5.1); TOTAL PROTEIN 7.3 gm/dL (6.4-8.2)
[2021-03-18 06:12] LABS: BASO % 0.3 % (0.0-1.0); EOS # 0.4 10*3/uL (0.0-0.4); EOS % 5.6 % (1.0-4.0); HEMATOCRIT 24.7 % (42.0-52.0); LYMPH # 1.2 10*3/uL (1.3-4.4); LYMPH % 18.2 % (27.0-41.0); MEAN CELL VOLUME 90.1 fl (80.0-94.0); MEAN CORPUSCULAR HGB 29.2 pg (27.0-31.0); MEAN CORPUSCULAR HGB CONC 32.4 g/dl (33.0-37.0); MEAN PLATELET VOLUME 11.1 fl (9.6-12.3); MONO # 0.7 10*3/uL (0.1-1.0); MONO % 10.1 % (3.0-9.0); NEUT # 4.4 10*3/uL (2.3-7.9); NEUT % 65.2 % (47.0-73.0); PLATELET COUNT AUTOMATED 262 10*3/uL (130-400); RED BLOOD COUNT 2.74 10*6/uL (4.50-5.90); RED CELL DISTRI WIDTH 14.2 % (0-14.5); WHITE BLOOD COUNT 6.8 10*3/uL (4.8-10.8)
[2021-03-18] MEDS ORDERED: MEROPENEM-500 MG/50 IV (15:49)
[2021-03-18] MEDS ORDERED: METOPROLOL SUCC25 M2 PO (15:49)
[2021-03-18] MEDS ORDERED: LEVOFLOXAC750 MG/150 IV (15:49)
[2021-03-18] MEDS ORDERED: VANCOMYCIN1.5 GM/300 IV (15:49)
[2021-03-18 18:23] LABS: HEMATOCRIT 23.1 % (42.0-52.0)
[2021-03-19] VITALS: BP 124/69
[2021-03-19 01:55] LABS: BASO % 0.5 % (0.0-1.0); EOS # 0.4 10*3/uL (0.0-0.4); EOS % 5.6 % (1.0-4.0); HEMATOCRIT 27.4 % (42.0-52.0); LYMPH # 0.9 10*3/uL (1.3-4.4); LYMPH % 13.5 % (27.0-41.0); MEAN CELL VOLUME 90.1 fl (80.0-94.0); MEAN CORPUSCULAR HGB 29.3 pg (27.0-31.0); MEAN CORPUSCULAR HGB CONC 32.5 g/dl (33.0-37.0); MEAN PLATELET VOLUME 10.5 fl (9.6-12.3); MONO # 0.6 10*3/uL (0.1-1.0); MONO % 9.8 % (3.0-9.0); NEUT # 4.5 10*3/uL (2.3-7.9); NEUT % 70.1 % (47.0-73.0); PLATELET COUNT AUTOMATED 256 10*3/uL (130-400); RED BLOOD COUNT 3.04 10*6/uL (4.50-5.90); RED CELL DISTRI WIDTH 13.9 % (0-14.5); WHITE BLOOD COUNT 6.4 10*3/uL (4.8-10.8)
[2021-03-19 04:00] VITALS: BP 124/60
[2021-03-19 06:12] LABS: ALBUMIN 2.2 gm/dl (3.1-4.5); BASO % 0.3 % (0.0-1.0); CREATININE 5.21 mg/dL (0.70-1.30); EOS # 0.4 10*3/uL (0.0-0.4); EOS % 5.9 % (1.0-4.0); HEMATOCRIT 26.5 % (42.0-52.0); LYMPH # 1.1 10*3/uL (1.3-4.4); LYMPH % 16.6 % (27.0-41.0); MEAN CELL VOLUME 90.1 fl (80.0-94.0); MEAN CORPUSCULAR HGB 29.6 pg (27.0-31.0); MEAN CORPUSCULAR HGB CONC 32.8 g/dl (33.0-37.0); MEAN PLATELET VOLUME 11.1 fl (9.6-12.3); MONO # 0.6 10*3/uL (0.1-1.0); MONO % 9.4 % (3.0-9.0); NEUT # 4.4 10*3/uL (2.3-7.9); NEUT % 66.1 % (47.0-73.0); PLATELET COUNT AUTOMATED 259 10*3/uL (130-400); POTASSIUM 4.1 mmol/L (3.5-5.1); RED BLOOD COUNT 2.94 10*6/uL (4.50-5.90); RED CELL DISTRI WIDTH 14.1 % (0-14.5); TOTAL PROTEIN 7.4 gm/dL (6.4-8.2); WHITE BLOOD COUNT 6.6 10*3/uL (4.8-10.8)
[2021-03-19 08:00] VITALS: BP 122/68
[2021-03-19 12:00] VITALS: BP 129/65
[2021-03-19 16:00] VITALS: BP 142/78
[2021-03-19 20:00] VITALS: BP 136/69
[2021-03-20] VITALS: BP 118/57; BP 144/78
[2021-03-20 06:18] LABS: BASO % 0.4 % (0.0-1.0); EOS # 0.4 10*3/uL (0.0-0.4); HEMATOCRIT 27.2 % (42.0-52.0); LYMPH # 1.1 10*3/uL (1.3-4.4); LYMPH % 16.3 % (27.0-41.0); MEAN CELL VOLUME 88.9 fl (80.0-94.0); MEAN CORPUSCULAR HGB 29.1 pg (27.0-31.0); MEAN CORPUSCULAR HGB CONC 32.7 g/dl (33.0-37.0); MONO # 0.7 10*3/uL (0.1-1.0); MONO % 10.2 % (3.0-9.0); NEUT # 4.5 10*3/uL (2.3-7.9); NEUT % 66.5 % (47.0-73.0); PLATELET COUNT AUTOMATED 271 10*3/uL (130-400); RED BLOOD COUNT 3.06 10*6/uL (4.50-5.90); RED CELL DISTRI WIDTH 13.8 % (0-14.5); WHITE BLOOD COUNT 6.7 10*3/uL (4.8-10.8)
[2021-03-20 06:39] LABS: ALBUMIN 2.4 gm/dl (3.1-4.5); CREATININE 5.69 mg/dL (0.70-1.30); POTASSIUM 4.5 mmol/L (3.5-5.1); TOTAL PROTEIN 7.4 gm/dL (6.4-8.2)
[2021-03-20 08:00] VITALS: BP 150/90
[2021-03-20 12:00] VITALS: BP 135/72
[2021-03-20 16:00] VITALS: BP 142/75
[2021-03-20 20:00] VITALS: BP 145/76
[2021-03-21] VITALS: BP 121/46
[2021-03-21 06:08] LABS: ALBUMIN 2.4 gm/dl (3.1-4.5); CREATININE 4.81 mg/dL (0.70-1.30); POTASSIUM 4.5 mmol/L (3.5-5.1)
[2021-03-21 06:13] LABS: BASO % 0.5 % (0.0-1.0); EOS # 0.4 10*3/uL (0.0-0.4); EOS % 5.6 % (1.0-4.0); HEMATOCRIT 27.1 % (42.0-52.0); LYMPH # 1.2 10*3/uL (1.3-4.4); LYMPH % 18.5 % (27.0-41.0); MEAN CELL VOLUME 89.4 fl (80.0-94.0); MEAN CORPUSCULAR HGB CONC 32.5 g/dl (33.0-37.0); MEAN PLATELET VOLUME 10.8 fl (9.6-12.3); MONO # 0.8 10*3/uL (0.1-1.0); MONO % 11.7 % (3.0-9.0); NEUT # 4.1 10*3/uL (2.3-7.9); NEUT % 62.8 % (47.0-73.0); PLATELET COUNT AUTOMATED 253 10*3/uL (130-400); RED BLOOD COUNT 3.03 10*6/uL (4.50-5.90); RED CELL DISTRI WIDTH 13.7 % (0-14.5); WHITE BLOOD COUNT 6.5 10*3/uL (4.8-10.8)
[2021-03-21 08:00] VITALS: BP 142/72
[2021-03-21 16:00] VITALS: BP 124/70
[2021-03-21 20:00] VITALS: BP 131/68
[2021-03-22] VITALS (9 sets, daily range): BP systolic 116–156; BP diastolic 48–81
[2021-03-23] VITALS: BP 144/72
[2021-03-23 05:52] LABS: ALBUMIN 2.4 gm/dl (3.1-4.5); CREATININE 5.24 mg/dL (0.70-1.30); POTASSIUM 4.6 mmol/L (3.5-5.1)
[2021-03-23 06:20] LABS: BASO % 0.4 % (0.0-1.0); EOS # 0.3 10*3/uL (0.0-0.4); EOS % 5.6 % (1.0-4.0); HEMATOCRIT 25.6 % (42.0-52.0); LYMPH # 1.2 10*3/uL (1.3-4.4); LYMPH % 21.4 % (27.0-41.0); MEAN CELL VOLUME 90.1 fl (80.0-94.0); MEAN CORPUSCULAR HGB 29.2 pg (27.0-31.0); MEAN CORPUSCULAR HGB CONC 32.4 g/dl (33.0-37.0); MEAN PLATELET VOLUME 10.9 fl (9.6-12.3); MONO # 0.7 10*3/uL (0.1-1.0); MONO % 12.8 % (3.0-9.0); NEUT # 3.3 10*3/uL (2.3-7.9); NEUT % 58.9 % (47.0-73.0); PLATELET COUNT AUTOMATED 252 10*3/uL (130-400); RED BLOOD COUNT 2.84 10*6/uL (4.50-5.90); RED CELL DISTRI WIDTH 13.3 % (0-14.5); WHITE BLOOD COUNT 5.6 10*3/uL (4.8-10.8)
[2021-04-07] MEDS ORDERED: PLAVIX75 M1 PO (08:59)
[2021-04-07] MEDS ORDERED: RETACRIT10000 UNIT IJ (09:00)
[2021-04-07] MEDS ORDERED: NOVOLOG 70/30 M10 ML SQ (09:06)
[2021-04-07] MEDS ORDERED: HUMULIN 70/30 703 M1 SQ (09:07)
[2021-04-07] MEDS ORDERED: NORVASC10 MG PO (09:08)
[2021-04-07] MEDS ORDERED: MAGNESIUM400 M1 PO (09:08)
[2021-04-07] MEDS ORDERED: TENOFOVIR DISO300 MG PO (09:10)
== END 2021-03-23 08:15 | disposition short-term general hospital (02) | DRG 720 ==
LOC: ED 11:52 → EDHOLD 13:51 → ICCU 13:51 → 4E 13:51 → EDHOLD 14:19 → ICCU 22:52 → 4E 03-20 04:01
PROVIDERS: Hospitalist; Internal Medicine; Internal Medicine Nephrology; Student in an Organized Health Care Education/Training Program; ADMIT Emergency Medicine; ATTEND Emergency Medicine
PROC: 5A1D70Z Performance of Urinary Filtration, Intermittent, Less than 6 Hours Per Day (ICD-10-PCS; 2021-03-16)
PROC: 5A1D70Z Performance of Urinary Filtration, Intermittent, Less than 6 Hours Per Day (ICD-10-PCS; 2021-03-17)
PROC: 30233N1 Transfusion of Nonautologous Red Blood Cells into Peripheral Vein, Percutaneous Approach (ICD-10-PCS; 2021-03-17)
PROC: 5A09357 Assistance with Respiratory Ventilation, Less than 24 Consecutive Hours, Continuous Positive Airway Pressure (ICD-10-PCS; 2021-03-17)
PROC: 5A0935A Assistance with Respiratory Ventilation, Less than 24 Consecutive Hours, High Flow/Velocity Cannula (ICD-10-PCS; 2021-03-17)
PROC: 5A1D70Z Performance of Urinary Filtration, Intermittent, Less than 6 Hours Per Day (ICD-10-PCS; principal; 2021-03-18)
PROC: 5A09357 Assistance with Respiratory Ventilation, Less than 24 Consecutive Hours, Continuous Positive Airway Pressure (ICD-10-PCS; 2021-03-18)
PROC: 5A0935A Assistance with Respiratory Ventilation, Less than 24 Consecutive Hours, High Flow/Velocity Cannula (ICD-10-PCS; 2021-03-18)
PROC: 5A09357 Assistance with Respiratory Ventilation, Less than 24 Consecutive Hours, Continuous Positive Airway Pressure (ICD-10-PCS; 2021-03-19)
PROC: 5A0935A Assistance with Respiratory Ventilation, Less than 24 Consecutive Hours, High Flow/Velocity Cannula (ICD-10-PCS; 2021-03-19)
PROC: 5A1D70Z Performance of Urinary Filtration, Intermittent, Less than 6 Hours Per Day (ICD-10-PCS; 2021-03-20)
PROC: 5A09357 Assistance with Respiratory Ventilation, Less than 24 Consecutive Hours, Continuous Positive Airway Pressure (ICD-10-PCS; 2021-03-20)
PROC: 5A0935A Assistance with Respiratory Ventilation, Less than 24 Consecutive Hours, High Flow/Velocity Cannula (ICD-10-PCS; 2021-03-20)
PROC: 5A09357 Assistance with Respiratory Ventilation, Less than 24 Consecutive Hours, Continuous Positive Airway Pressure (ICD-10-PCS; 2021-03-21)
PROC: 5A0935A Assistance with Respiratory Ventilation, Less than 24 Consecutive Hours, High Flow/Velocity Cannula (ICD-10-PCS; 2021-03-21)
PROC: 0DJ08ZZ Inspection of Upper Intestinal Tract, Via Natural or Artificial Opening Endoscopic (ICD-10-PCS; 2021-03-22)
PROC: 0DBH8ZZ Excision of Cecum, Via Natural or Artificial Opening Endoscopic (ICD-10-PCS; 2021-03-22)
PROC: 5A09357 Assistance with Respiratory Ventilation, Less than 24 Consecutive Hours, Continuous Positive Airway Pressure (ICD-10-PCS; 2021-03-22)
DX: A41.9 Sepsis, unspecified organism (principal); I21.4 Non-ST elevation (NSTEMI) myocardial infarction; I50.33 Acute on chronic diastolic (congestive) heart failure; N17.9 Acute kidney failure, unspecified; D64.9 Anemia, unspecified; K21.9 Gastro-esophageal reflux disease without esophagitis; E44.0 Moderate protein-calorie malnutrition; E87.1 Hypo-osmolality and hyponatremia; E11.65 Type 2 diabetes mellitus with hyperglycemia; R74.01 Elevation of levels of liver transaminase levels; E11.22 Type 2 diabetes mellitus with diabetic chronic kidney disease; B19.10 Unspecified viral hepatitis B without hepatic coma; E78.5 Hyperlipidemia, unspecified; I25.10 Atherosclerotic heart disease of native coronary artery without angina pectoris; I13.2 Hypertensive heart and chronic kidney disease with heart failure and with stage 5 chronic kidney disease, or end stage renal disease; E11.40 Type 2 diabetes mellitus with diabetic neuropathy, unspecified; K57.31 Diverticulosis of large intestine without perforation or abscess with bleeding; K29.71 Gastritis, unspecified, with bleeding; E66.9 Obesity, unspecified; G47.33 Obstructive sleep apnea (adult) (pediatric); D12.0 Benign neoplasm of cecum; N18.6 End stage renal disease; Z99.2 Dependence on renal dialysis; Z79.4 Long term (current) use of insulin; Z90.49 Acquired absence of other specified parts of digestive tract; Z95.5 Presence of coronary angioplasty implant and graft; Z82.49 Family history of ischemic heart disease and other diseases of the circulatory system; Z88.0 Allergy status to penicillin; Z88.2 Allergy status to sulfonamides; Z86.16 Personal history of COVID-19; I25.2 Old myocardial infarction; Z79.899 Other long term (current) drug therapy; Z79.82 Long term (current) use of aspirin; Z85.528 Personal history of other malignant neoplasm of kidney; Z68.41 Body mass index [BMI] 40.0-44.9, adult; J15.6 Pneumonia due to other Gram-negative bacteria; J96.01 Acute respiratory failure with hypoxia

== ENCOUNTER → 2021-04-07 | Outpatient (CLI) | payer OTHER ==
[~2021-04-07] MED LIST changes: +ATARAX,VISTARIL50 MG PO; +COLESTIPOL HYDRO1 GM PO; +FREESTYLE LIBR1 EAC2 MC; +HUMULIN 70/30 703 M1 SQ; +LATANOPROST2.5 ML OP; +LEVOFLOXAC750 MG/150 IV; +LOPRESSOR25 MG PO; +MAGNESIUM400 M1 PO; +MEROPENEM-500 MG/50 IV; +METOPROLOL SUCC50 M1 PO; +NON-ASPIRIN PA325 M2 PO; +NORVASC10 MG PO; +NOVOLOG 70/30 M10 ML SQ; +NOVOLOG FL100 UNIT/2 SQ; +PLAVIX75 M1 PO; +RETACRIT10000 UNIT IJ; +TENOFOVIR DISO300 MG PO; +VANCOMYCIN1.5 GM/300 IV
== END | disposition home or self-care (01) ==
LOC: CARD 00:14
PROVIDERS: ATTEND Internal Medicine Cardiovascular Disease
DX: I44.0 Atrioventricular block, first degree (principal); I21.4 Non-ST elevation (NSTEMI) myocardial infarction; R07.9 Chest pain, unspecified; R53.81 Other malaise

== ENCOUNTER 2021-04-17 08:06 | Emergency (ER) | payer OTHER ==
[~2021-04-17] VITALS: Ht 177.8 cm; Wt 121.1 kg
[2021-04-17 08:12] VITALS: BP 147/69
== END 2021-04-17 08:42 | disposition home or self-care (01) ==
LOC: ED 08:06
DX: L89.152 Pressure ulcer of sacral region, stage 2 (principal); I25.10 Atherosclerotic heart disease of native coronary artery without angina pectoris; I13.2 Hypertensive heart and chronic kidney disease with heart failure and with stage 5 chronic kidney disease, or end stage renal disease; E11.22 Type 2 diabetes mellitus with diabetic chronic kidney disease; N18.5 Chronic kidney disease, stage 5; K21.9 Gastro-esophageal reflux disease without esophagitis; E78.5 Hyperlipidemia, unspecified; Z88.0 Allergy status to penicillin; Z88.2 Allergy status to sulfonamides; Z79.899 Other long term (current) drug therapy

== ENCOUNTER → 2021-06-23 | Outpatient (CLI) | payer OTHER ==
[~2021-06-23] MED LIST changes: +Imdur SA60 MG PO
[2021-06-23 11:38] LABS: BASO % 0.5 % (0.0-1.0); EOS # 0.4 10*3/uL (0.0-0.4); EOS % 7.1 % (1.0-4.0); HEMATOCRIT 30.8 % (42.0-52.0); LYMPH # 1.8 10*3/uL (1.3-4.4); LYMPH % 30.3 % (27.0-41.0); MEAN CELL VOLUME 88.3 fl (80.0-94.0); MEAN CORPUSCULAR HGB 29.2 pg (27.0-31.0); MEAN CORPUSCULAR HGB CONC 33.1 g/dl (33.0-37.0); MEAN PLATELET VOLUME 9.9 fl (9.6-12.3); MONO # 0.4 10*3/uL (0.1-1.0); MONO % 7.4 % (3.0-9.0); NEUT # 3.2 10*3/uL (2.3-7.9); NEUT % 54.4 % (47.0-73.0); PLATELET COUNT AUTOMATED 208 10*3/uL (130-400); RED BLOOD COUNT 3.49 10*6/uL (4.50-5.90); RED CELL DISTRI WIDTH 13.6 % (0-14.5); WHITE BLOOD COUNT 5.9 10*3/uL (4.8-10.8)
[2021-06-23 11:39] LABS: BILIRUBIN Negative (Negative); BLOOD Trace-Lysed (Negative); CLARITY Clear (Clear); COLOR Yellow (Yellow); GLUCOSE 1+ (Negative); KETONE Negative (Negative); LEUKO ESTERASE Negative (Negative); NITRITE Negative (Negative); SPECIFIC GRAVITY 1.015 (1.001-1.030); UROBILINOGEN 0.2 E.U./dl (0.0-1.0)
[2021-06-23 11:47] LABS: URINE CREATININE RANDOM 71.8 mg/dL
[2021-06-23 11:51] LABS: ALBUMIN 2.9 gm/dl (3.1-4.5); CREATININE 7.08 mg/dL (0.70-1.30); POTASSIUM 4.6 mmol/L (3.5-5.1)
[2021-06-23 12:17] LABS: FERRITIN 278.5 ng/mL (22.0-322.0); PTH INTACT 337.5 pg/mL (18.5-88.0); VITAMIN D, 25-HYDROXY 32.5 ng/mL (30-100)
[2021-06-24 08:07] LABS: HEP B CORE AB, IGM Negative (Negative); HEPATITIS B SURFACE AB Non Reactive (.); HEPATITIS B SURFACE AG Positive (Negative); HEPATITIS C VIRUS ANTIBODY 0.5 s/co (0.0-0.9)
== END | disposition home or self-care (01) ==
LOC: LAB 11:09
PROVIDERS: ATTEND Internal Medicine Nephrology
DX: N18.5 Chronic kidney disease, stage 5 (principal); D63.1 Anemia in chronic kidney disease; N25.81 Secondary hyperparathyroidism of renal origin

== ENCOUNTER 2021-06-30 12:08 | Inpatient (IN) | payer OTHER ==
[~2021-06-30] VITALS: Ht 177.8 cm; Wt 126.4 kg
[~2021-06-30 12:08] MED LIST changes: -Imdur SA60 MG PO
[2021-06-30 12:24] VITALS: BP 173/85
[2021-06-30 15:52] VITALS: BP 172/80
[2021-06-30 17:55] VITALS: BP 173/80
[2021-06-30 20:00] VITALS: BP 144/66
[2021-07-01] VITALS: BP 155/77
[2021-07-01 03:59] LABS: BASO % 0.3 % (0.0-1.0); EOS # 0.2 10*3/uL (0.0-0.4); EOS % 1.7 % (1.0-4.0); HEMATOCRIT 31.3 % (42.0-52.0); LYMPH # 1.3 10*3/uL (1.3-4.4); LYMPH % 11.6 % (27.0-41.0); MEAN CELL VOLUME 88.9 fl (80.0-94.0); MEAN CORPUSCULAR HGB 28.7 pg (27.0-31.0); MEAN CORPUSCULAR HGB CONC 32.3 g/dl (33.0-37.0); MEAN PLATELET VOLUME 10.9 fl (9.6-12.3); MONO # 0.9 10*3/uL (0.1-1.0); MONO % 7.7 % (3.0-9.0); NEUT # 8.8 10*3/uL (2.3-7.9); NEUT % 78.3 % (47.0-73.0); PLATELET COUNT AUTOMATED 203 10*3/uL (130-400); RED BLOOD COUNT 3.52 10*6/uL (4.50-5.90); RED CELL DISTRI WIDTH 14.2 % (0-14.5); WHITE BLOOD COUNT 11.2 10*3/uL (4.8-10.8)
[2021-07-01 04:00] VITALS: BP 157/67
[2021-07-01 04:15] LABS: CREATININE 6.67 mg/dL (0.70-1.30); TOTAL PROTEIN 8.3 gm/dL (6.4-8.2)
[2021-07-01 04:16] LABS: FREE T4 0.74 ng/dl (0.76-1.46)
[2021-07-01 04:18] LABS: POTASSIUM 4.6 mmol/L (3.5-5.1)
[2021-07-01 04:25] LABS: THYROID STIM HORMONE (HS) 0.492 uIU/ml (0.358-4.75)
[2021-07-01 08:00] VITALS: BP 141/81; BP 148/70
[2021-07-01 08:07] LABS: VITAMIN D, 25-HYDROXY 22.4 ng/mL (30-100)
[2021-07-01 12:00] VITALS: BP 137/62
[2021-07-01 16:00] VITALS: BP 134/56
[2021-07-01 20:00] VITALS: BP 132/54
[2021-07-02] VITALS: BP 156/78
[2021-07-02 05:56] LABS: CREATININE 5.91 mg/dL (0.70-1.30); POTASSIUM 4.5 mmol/L (3.5-5.1)
[2021-07-02 06:17] LABS: BASO % 0.5 % (0.0-1.0); EOS # 0.4 10*3/uL (0.0-0.4); EOS % 5.6 % (1.0-4.0); HEMATOCRIT 29.4 % (42.0-52.0); LYMPH # 1.7 10*3/uL (1.3-4.4); LYMPH % 22.6 % (27.0-41.0); MEAN CELL VOLUME 89.9 fl (80.0-94.0); MEAN CORPUSCULAR HGB 28.7 pg (27.0-31.0); MEAN PLATELET VOLUME 10.6 fl (9.6-12.3); MONO # 0.6 10*3/uL (0.1-1.0); MONO % 8.1 % (3.0-9.0); NEUT # 4.8 10*3/uL (2.3-7.9); NEUT % 62.7 % (47.0-73.0); PLATELET COUNT AUTOMATED 201 10*3/uL (130-400); RED BLOOD COUNT 3.27 10*6/uL (4.50-5.90); RED CELL DISTRI WIDTH 13.7 % (0-14.5); WHITE BLOOD COUNT 7.7 10*3/uL (4.8-10.8)
[2021-07-02 08:00] VITALS: BP 141/67
[2021-07-02 12:00] VITALS: BP 127/54
[2021-07-02] MEDS ORDERED: Imdur SA60 MG PO (14:48)
== END 2021-07-02 18:50 | disposition home or self-care (01) | DRG 194 ==
LOC: ED 12:08 → 4E 13:02 → EDHOLD 13:02 → 4E 16:53
PROVIDERS: Family Medicine; Internal Medicine; ADMIT Internal Medicine; ATTEND Internal Medicine
PROC: 5A1D70Z Performance of Urinary Filtration, Intermittent, Less than 6 Hours Per Day (ICD-10-PCS; 2021-07-01)
PROC: 5A1D70Z Performance of Urinary Filtration, Intermittent, Less than 6 Hours Per Day (ICD-10-PCS; principal; 2021-07-02)
DX: I13.2 Hypertensive heart and chronic kidney disease with heart failure and with stage 5 chronic kidney disease, or end stage renal disease (principal); N18.6 End stage renal disease; E87.1 Hypo-osmolality and hyponatremia; E87.5 Hyperkalemia; E83.39 Other disorders of phosphorus metabolism; I25.10 Atherosclerotic heart disease of native coronary artery without angina pectoris; K21.9 Gastro-esophageal reflux disease without esophagitis; E11.22 Type 2 diabetes mellitus with diabetic chronic kidney disease; E11.65 Type 2 diabetes mellitus with hyperglycemia; I50.23 Acute on chronic systolic (congestive) heart failure; Z20.822 Contact with and (suspected) exposure to COVID-19; E44.0 Moderate protein-calorie malnutrition; E83.51 Hypocalcemia; J96.00 Acute respiratory failure, unspecified whether with hypoxia or hypercapnia; Z99.2 Dependence on renal dialysis; Z95.5 Presence of coronary angioplasty implant and graft; Z90.49 Acquired absence of other specified parts of digestive tract; I25.2 Old myocardial infarction; Z88.2 Allergy status to sulfonamides; Z88.0 Allergy status to penicillin; Z79.899 Other long term (current) drug therapy; Z79.1 Long term (current) use of non-steroidal anti-inflammatories (NSAID); Z79.82 Long term (current) use of aspirin; Z79.4 Long term (current) use of insulin; R65.11 Systemic inflammatory response syndrome (SIRS) of non-infectious origin with acute organ dysfunction

== ENCOUNTER 2021-07-13 09:09 | Observation (INO) | payer OTHER ==
[~2021-07-13] VITALS: Ht 177.8 cm; Wt 122.5 kg
[~2021-07-13 09:09] MED LIST changes: +Imdur SA60 MG PO
[2021-07-13 09:46] VITALS: BP 135/60
[2021-07-13 10:46] LABS: BASO % 0.3 % (0.0-1.0); EOS # 0.2 10*3/uL (0.0-0.4); EOS % 2.1 % (1.0-4.0); HEMATOCRIT 30.3 % (42.0-52.0); LYMPH # 1.4 10*3/uL (1.3-4.4); LYMPH % 13.2 % (27.0-41.0); MEAN CELL VOLUME 87.3 fl (80.0-94.0); MEAN CORPUSCULAR HGB 29.1 pg (27.0-31.0); MEAN CORPUSCULAR HGB CONC 33.3 g/dl (33.0-37.0); MEAN PLATELET VOLUME 10.3 fl (9.6-12.3); MONO # 0.9 10*3/uL (0.1-1.0); NEUT # 8.2 10*3/uL (2.3-7.9); NEUT % 75.8 % (47.0-73.0); PLATELET COUNT AUTOMATED 234 10*3/uL (130-400); RED BLOOD COUNT 3.47 10*6/uL (4.50-5.90); RED CELL DISTRI WIDTH 13.8 % (0-14.5); WHITE BLOOD COUNT 10.8 10*3/uL (4.8-10.8)
[2021-07-13 10:55] LABS: ACT PARTIAL THROMBO TIME 25.4 SECONDS (20.0-32.1); INTERNATIONAL NORM RATIO 1.1 (2.0-3.5)
[2021-07-13 11:00] LABS: ALBUMIN 3.2 gm/dl (3.1-4.5); CREATININE 6.83 mg/dL (0.70-1.30); POTASSIUM 4.4 mmol/L (3.5-5.1); TOTAL PROTEIN 8.2 gm/dL (6.4-8.2)
[2021-07-13 11:03] LABS: TROPONIN I 0.242 ng/ml (<0.045)
[2021-07-13 17:39] VITALS: BP 124/49
[2021-07-14 04:16] LABS: BASO % 0.4 % (0.0-1.0); EOS # 0.3 10*3/uL (0.0-0.4); EOS % 3.6 % (1.0-4.0); HEMATOCRIT 28.1 % (42.0-52.0); LYMPH # 1.7 10*3/uL (1.3-4.4); LYMPH % 21.2 % (27.0-41.0); MEAN CELL VOLUME 88.6 fl (80.0-94.0); MEAN CORPUSCULAR HGB CONC 32.7 g/dl (33.0-37.0); MEAN PLATELET VOLUME 9.8 fl (9.6-12.3); MONO # 0.8 10*3/uL (0.1-1.0); MONO % 10.2 % (3.0-9.0); NEUT # 5.2 10*3/uL (2.3-7.9); NEUT % 64.4 % (47.0-73.0); PLATELET COUNT AUTOMATED 216 10*3/uL (130-400); RED BLOOD COUNT 3.17 10*6/uL (4.50-5.90); RED CELL DISTRI WIDTH 13.9 % (0-14.5); WHITE BLOOD COUNT 8.1 10*3/uL (4.8-10.8)
[2021-07-14 04:35] LABS: ALBUMIN 2.9 gm/dl (3.1-4.5); CREATININE 6.82 mg/dL (0.70-1.30); POTASSIUM 4.1 mmol/L (3.5-5.1); TOTAL PROTEIN 7.6 gm/dL (6.4-8.2)
[2021-07-14 07:17] VITALS: BP 129/68
[2021-07-14] MEDS ORDERED: PERCOCET 5-3251 EACH PO (12:41)
== END 2021-07-14 16:37 | disposition home or self-care (01) ==
LOC: ED 09:09 → 5E 15:58 → EDHOLD 15:58 → 5E 07-14 12:15 → EDHOLD 07-14 16:37
PROVIDERS: Emergency Medicine; ADMIT Family Medicine; ATTEND Family Medicine
DX: S22.41XA Multiple fractures of ribs, right side, initial encounter for closed fracture (principal); S82.51XK Displaced fracture of medial malleolus of right tibia, subsequent encounter for closed fracture with nonunion; S99.911A Unspecified injury of right ankle, initial encounter; D64.9 Anemia, unspecified; E11.22 Type 2 diabetes mellitus with diabetic chronic kidney disease; I13.2 Hypertensive heart and chronic kidney disease with heart failure and with stage 5 chronic kidney disease, or end stage renal disease; N18.6 End stage renal disease; I50.9 Heart failure, unspecified; Z20.822 Contact with and (suspected) exposure to COVID-19; E83.41 Hypermagnesemia; E87.1 Hypo-osmolality and hyponatremia; R26.2 Difficulty in walking, not elsewhere classified; R77.8 Other specified abnormalities of plasma proteins; R79.9 Abnormal finding of blood chemistry, unspecified; R79.89 Other specified abnormal findings of blood chemistry; R74.8 Abnormal levels of other serum enzymes; R79.82 Elevated C-reactive protein (CRP); E78.5 Hyperlipidemia, unspecified; I25.10 Atherosclerotic heart disease of native coronary artery without angina pectoris; K21.9 Gastro-esophageal reflux disease without esophagitis; Z79.899 Other long term (current) drug therapy; Z99.2 Dependence on renal dialysis; W10.9XXA Fall (on) (from) unspecified stairs and steps, initial encounter; Y93.89 Activity, other specified; Y92.89 Other specified places as the place of occurrence of the external cause; Y99.8 Other external cause status

== ENCOUNTER 2021-10-26 07:40 | Emergency (ER) | payer MEDICARE, MEDICAID ==
[~2021-10-26] VITALS: Ht 177.8 cm; Wt 127.0 kg
[~2021-10-26 07:40] MED LIST changes: +PERCOCET 5-3251 EACH PO
[2021-10-26 07:58] LABS: BASO % 0.3 % (0.0-1.0); EOS # 0.2 10*3/uL (0.0-0.4); EOS % 2.4 % (1.0-4.0); HEMATOCRIT 31.5 % (42.0-52.0); LYMPH % 10.5 % (27.0-41.0); MEAN CELL VOLUME 92.1 fl (80.0-94.0); MEAN CORPUSCULAR HGB 30.4 pg (27.0-31.0); MEAN PLATELET VOLUME 10.4 fl (9.6-12.3); MONO # 0.7 10*3/uL (0.1-1.0); MONO % 7.5 % (3.0-9.0); NEUT # 7.7 10*3/uL (2.3-7.9); PLATELET COUNT AUTOMATED 200 10*3/uL (130-400); RED BLOOD COUNT 3.42 10*6/uL (4.50-5.90); RED CELL DISTRI WIDTH 14.5 % (0-14.5); WHITE BLOOD COUNT 9.8 10*3/uL (4.8-10.8)
[2021-10-26 08:13] LABS: ALKALINE PHOSPHATASE 179 U/L (45-117); BUN 53 mg/dl (7-24); CHLORIDE 96 mmol/L (98-107); CREATININE 6.75 mg/dL (0.70-1.30); POTASSIUM 4.9 mmol/L (3.5-5.1); SGOT/AST 26 IU/L (3-35); SGPT/ALT 27 U/L (12-78); SODIUM 132 mmol/L (136-145)
[2021-10-26 08:17] LABS: ACT PARTIAL THROMBO TIME 29.8 SECONDS (20.0-32.1); INTERNATIONAL NORM RATIO 1.1 (2.0-3.5)
[2021-10-26 10:53] VITALS: BP 144/78
== END 2021-10-26 10:53 | disposition short-term general hospital (02) ==
LOC: ED
PROVIDERS: Emergency Medicine
DX: I21.4 Non-ST elevation (NSTEMI) myocardial infarction (principal); I25.10 Atherosclerotic heart disease of native coronary artery without angina pectoris; K21.9 Gastro-esophageal reflux disease without esophagitis; I25.2 Old myocardial infarction; E78.5 Hyperlipidemia, unspecified; I13.2 Hypertensive heart and chronic kidney disease with heart failure and with stage 5 chronic kidney disease, or end stage renal disease; E11.22 Type 2 diabetes mellitus with diabetic chronic kidney disease; N18.6 End stage renal disease; Z88.0 Allergy status to penicillin; Z88.2 Allergy status to sulfonamides; Z79.899 Other long term (current) drug therapy; Z90.49 Acquired absence of other specified parts of digestive tract; Z98.890 Other specified postprocedural states; Z90.89 Acquired absence of other organs

== ENCOUNTER 2021-12-15 07:39 | Emergency (ER) | payer MEDICARE, MEDICAID ==
[~2021-12-15] VITALS: Ht 177.8 cm; Wt 130.2 kg
[2021-12-15 07:49] VITALS: BP 147/79
[2021-12-15 08:14] LABS: BASO % 0.8 % (0.0-1.0); EOS # 0.2 10*3/uL (0.0-0.4); EOS % 3.5 % (1.0-4.0); HEMATOCRIT 30.5 % (42.0-52.0); LYMPH # 1.8 10*3/uL (1.3-4.4); LYMPH % 36.7 % (27.0-41.0); MEAN CELL VOLUME 90.2 fl (80.0-94.0); MEAN CORPUSCULAR HGB 31.1 pg (27.0-31.0); MEAN CORPUSCULAR HGB CONC 34.4 g/dl (33.0-37.0); MONO # 0.5 10*3/uL (0.1-1.0); NEUT # 2.3 10*3/uL (2.3-7.9); NEUT % 47.8 % (47.0-73.0); PLATELET COUNT AUTOMATED 216 10*3/uL (130-400); RED BLOOD COUNT 3.38 10*6/uL (4.50-5.90); RED CELL DISTRI WIDTH 13.6 % (0-14.5); WHITE BLOOD COUNT 4.9 10*3/uL (4.8-10.8)
[2021-12-15 08:33] LABS: CREATININE 7.04 mg/dL (0.70-1.30); POTASSIUM 4.7 mmol/L (3.5-5.1)
== END 2021-12-15 08:43 | disposition left against medical advice (07) ==
LOC: ED 07:39
PROVIDERS: Internal Medicine
DX: I12.9 Hypertensive chronic kidney disease with stage 1 through stage 4 chronic kidney disease, or unspecified chronic kidney disease (principal); K21.9 Gastro-esophageal reflux disease without esophagitis; I25.2 Old myocardial infarction; Z88.0 Allergy status to penicillin; Z88.2 Allergy status to sulfonamides; Z79.899 Other long term (current) drug therapy; Z90.49 Acquired absence of other specified parts of digestive tract; Z90.89 Acquired absence of other organs; Z98.890 Other specified postprocedural states

== ENCOUNTER → 2022-02-24 | Outpatient (CLI) | payer OTHER ==
[2022-02-24 11:34] LABS: BILIRUBIN Negative (Negative); BLOOD Trace-Lysed (Negative); CLARITY Clear (Clear); COLOR Yellow (Yellow); GLUCOSE 1+ (Negative); KETONE Negative (Negative); LEUKO ESTERASE Negative (Negative); NITRITE Negative (Negative); UROBILINOGEN 0.2 E.U./dl (0.0-1.0)
[2022-02-24 11:34] LABS: BASO % 0.5 % (0.0-1.0); EOS # 0.2 10*3/uL (0.0-0.4); EOS % 3.8 % (1.0-4.0); HEMATOCRIT 28.9 % (42.0-52.0); LYMPH # 1.7 10*3/uL (1.3-4.4); LYMPH % 26.4 % (27.0-41.0); MEAN CELL VOLUME 90.3 fl (80.0-94.0); MEAN CORPUSCULAR HGB CONC 33.2 g/dl (33.0-37.0); MEAN PLATELET VOLUME 10.5 fl (9.6-12.3); MONO # 0.6 10*3/uL (0.1-1.0); MONO % 8.6 % (3.0-9.0); NEUT # 3.9 10*3/uL (2.3-7.9); NEUT % 60.4 % (47.0-73.0); PLATELET COUNT AUTOMATED 200 10*3/uL (130-400); WHITE BLOOD COUNT 6.4 10*3/uL (4.8-10.8)
[2022-02-24 11:43] LABS: URINE CREATININE RANDOM 40.3 mg/dL
[2022-02-24 11:44] LABS: BACTERIA 1+; EPITHELIAL CELLS 0-2; WBC 0-2 wbc/hpf (0-5)
[2022-02-24 11:46] LABS: CREATININE 7.38 mg/dL (0.70-1.30); POTASSIUM 4.5 mmol/L (3.5-5.1)
[2022-02-24 14:27] LABS: VITAMIN D, 25-HYDROXY 22.9 ng/mL (30-100)
[2022-02-24 14:29] LABS: FERRITIN 251.8 ng/mL (22.0-322.0)
[2022-02-25 08:07] LABS: HBSAG Positive (Negative); HEP B CORE AB, IGM Negative (Negative); HEPATITIS C ANTIBODY 0.2 (0.0-0.9)
== END | disposition home or self-care (01) ==
LOC: LAB 11:03
PROVIDERS: ATTEND Internal Medicine Nephrology
DX: E11.21 Type 2 diabetes mellitus with diabetic nephropathy (principal); N18.5 Chronic kidney disease, stage 5; D63.1 Anemia in chronic kidney disease; N25.81 Secondary hyperparathyroidism of renal origin; B16.1 Acute hepatitis B with delta-agent without hepatic coma

== ENCOUNTER → 2022-04-27 | Outpatient (CLI) | payer OTHER ==
[~2022-04-27] MED LIST changes: +BUMETANIDE2 MG PO; +ISOSORBIDE MON120 MG PO; +OXYCODONE HCL5 MG PO; +OZEMPIC1 MG/0.71 SQ; -OZEMPIC1 MG/0.75 SQ
[2022-04-27 12:57] LABS: BASO % 0.4 % (0.0-1.0); EOS # 0.3 10*3/uL (0.0-0.4); LYMPH # 1.5 10*3/uL (1.3-4.4); LYMPH % 21.8 % (27.0-41.0); MEAN CELL VOLUME 91.5 fl (80.0-94.0); MEAN CORPUSCULAR HGB 30.5 pg (27.0-31.0); MEAN CORPUSCULAR HGB CONC 33.3 g/dl (33.0-37.0); MONO # 0.6 10*3/uL (0.1-1.0); MONO % 8.4 % (3.0-9.0); NEUT # 4.5 10*3/uL (2.3-7.9); PLATELET COUNT AUTOMATED 203 10*3/uL (130-400); RED BLOOD COUNT 3.28 10*6/uL (4.50-5.90); WHITE BLOOD COUNT 6.9 10*3/uL (4.8-10.8)
[2022-04-27 13:09] LABS: CREATININE 6.99 mg/dL (0.70-1.30); POTASSIUM 4.5 mmol/L (3.5-5.1)
[2022-04-27 13:35] LABS: BILIRUBIN Negative (Negative); BLOOD 1+ (Negative); CLARITY Clear (Clear); COLOR Yellow (Yellow); GLUCOSE Trace (Negative); KETONE Negative (Negative); LEUKO ESTERASE Negative (Negative); NITRITE Negative (Negative); PH 5.5 (4.5-8.0); UROBILINOGEN 0.2 E.U./dl (0.0-1.0)
[2022-04-27 13:37] LABS: WBC 0-2 wbc/hpf (0-5)
[2022-04-27 13:42] LABS: URINE CREATININE RANDOM 62.6 mg/dL
[2022-04-27 14:06] LABS: FERRITIN 310.6 ng/mL (22.0-322.0); VITAMIN D, 25-HYDROXY 19.6 ng/mL (30-100)
[2022-04-28 12:07] LABS: HBSAG Positive (Negative); HEP B CORE AB, IGM Negative (Negative); HEPATITIS C ANTIBODY 0.2 (0.0-0.9)
== END | disposition home or self-care (01) ==
LOC: LAB 12:30
PROVIDERS: ATTEND Internal Medicine Nephrology
DX: E11.21 Type 2 diabetes mellitus with diabetic nephropathy (principal); N18.5 Chronic kidney disease, stage 5; D63.1 Anemia in chronic kidney disease; N25.81 Secondary hyperparathyroidism of renal origin; B18.1 Chronic viral hepatitis B without delta-agent; Z11.59 Encounter for screening for other viral diseases; Z72.89 Other problems related to lifestyle

== ENCOUNTER 2022-05-04 22:33 | Inpatient (IN) | payer OTHER ==
[~2022-05-04] VITALS: Ht 177.8 cm; Wt 134.3 kg
[~2022-05-04 22:33] MED LIST changes: -BUMETANIDE2 MG PO; -ISOSORBIDE MON120 MG PO; -OXYCODONE HCL5 MG PO
[2022-05-04 22:36] VITALS: BP 152/60
[2022-05-04 22:56] LABS: BASO % 0.2 % (0.0-1.0); EOS # 0.1 10*3/uL (0.0-0.4); EOS % 1.4 % (1.0-4.0); HEMATOCRIT 26.2 % (42.0-52.0); LYMPH # 0.7 10*3/uL (1.3-4.4); MEAN CELL VOLUME 92.3 fl (80.0-94.0); MEAN CORPUSCULAR HGB 30.3 pg (27.0-31.0); MEAN CORPUSCULAR HGB CONC 32.8 g/dl (33.0-37.0); MEAN PLATELET VOLUME 9.7 fl (9.6-12.3); MONO # 0.8 10*3/uL (0.1-1.0); MONO % 9.2 % (3.0-9.0); NEUT # 6.7 10*3/uL (2.3-7.9); NEUT % 80.7 % (47.0-73.0); PLATELET COUNT AUTOMATED 197 10*3/uL (130-400); RED BLOOD COUNT 2.84 10*6/uL (4.50-5.90); WHITE BLOOD COUNT 8.3 10*3/uL (4.8-10.8)
[2022-05-04 23:09] LABS: ACT PARTIAL THROMBO TIME 36.2 SECONDS (20.0-32.1); INTERNATIONAL NORM RATIO 1.2 (2.0-3.5)
[2022-05-04 23:18] LABS: CREATININE 7.3 mg/dL (0.70-1.30); POTASSIUM 4.8 mmol/L (3.5-5.1); TOTAL PROTEIN 7.3 gm/dL (6.4-8.2)
[2022-05-04 23:48] VITALS: BP 154/81
[2022-05-05] VITALS (8 sets, daily range): BP systolic 118–170; BP diastolic 62–92
[2022-05-05] MEDS ORDERED: AURYXIA210 MG PO (04:09)
[2022-05-05] MEDS ORDERED: BRILINTA90 M1 PO (04:10)
[2022-05-05] MEDS ORDERED: DICYCLOMINE HCL10 MG PO (04:11)
[2022-05-05] MEDS ORDERED: ISOSORBIDE MON120 MG PO (04:15)
[2022-05-05] MEDS ORDERED: BUMETANIDE2 MG PO (04:17)
[2022-05-05] MEDS ORDERED: OXYCODONE HCL5 MG PO (04:18)
[2022-05-05] MEDS ORDERED: NITROSTAT0.4 MG SL (04:20)
[2022-05-06] VITALS: BP 131/68
[2022-05-06 06:13] LABS: BASO % 0.2 % (0.0-1.0); EOS # 0.1 10*3/uL (0.0-0.4); EOS % 0.5 % (1.0-4.0); HEMATOCRIT 27.2 % (42.0-52.0); LYMPH % 9.7 % (27.0-41.0); MEAN CELL VOLUME 94.8 fl (80.0-94.0); MEAN CORPUSCULAR HGB 30.3 pg (27.0-31.0); MEAN PLATELET VOLUME 10.8 fl (9.6-12.3); MONO # 0.8 10*3/uL (0.1-1.0); MONO % 7.2 % (3.0-9.0); NEUT # 8.7 10*3/uL (2.3-7.9); NEUT % 81.7 % (47.0-73.0); PLATELET COUNT AUTOMATED 225 10*3/uL (130-400); RED BLOOD COUNT 2.87 10*6/uL (4.50-5.90); RED CELL DISTRI WIDTH 14.1 % (0-14.5); WHITE BLOOD COUNT 10.6 10*3/uL (4.8-10.8)
[2022-05-06 06:14] LABS: CREATININE 7.63 mg/dL (0.70-1.30); POTASSIUM 5.1 mmol/L (3.5-5.1); TOTAL PROTEIN 7.6 gm/dL (6.4-8.2)
[2022-05-06 08:00] VITALS: BP 149/82
== END 2022-05-06 10:03 | disposition short-term general hospital (02) | DRG 871 ==
LOC: ED 22:33 → EDHOLD 05-05 04:23 → 4E 05-05 04:23
PROVIDERS: Emergency Medicine; Internal Medicine; ADMIT Internal Medicine; ATTEND Internal Medicine
DX: A41.9 Sepsis, unspecified organism (principal); I21.4 Non-ST elevation (NSTEMI) myocardial infarction; J18.9 Pneumonia, unspecified organism; I50.33 Acute on chronic diastolic (congestive) heart failure; N18.6 End stage renal disease; E44.0 Moderate protein-calorie malnutrition; Z68.43 Body mass index [BMI] 50.0-59.9, adult; I13.2 Hypertensive heart and chronic kidney disease with heart failure and with stage 5 chronic kidney disease, or end stage renal disease; E11.65 Type 2 diabetes mellitus with hyperglycemia; E11.22 Type 2 diabetes mellitus with diabetic chronic kidney disease; Z20.822 Contact with and (suspected) exposure to COVID-19; K21.9 Gastro-esophageal reflux disease without esophagitis; R65.20 Severe sepsis without septic shock; E78.2 Mixed hyperlipidemia; I25.10 Atherosclerotic heart disease of native coronary artery without angina pectoris; D64.9 Anemia, unspecified; Z88.2 Allergy status to sulfonamides; Z95.5 Presence of coronary angioplasty implant and graft; Z79.4 Long term (current) use of insulin; Z88.0 Allergy status to penicillin; I25.2 Old myocardial infarction

== ENCOUNTER 2022-05-13 17:15 | Inpatient (IN) | payer OTHER ==
[~2022-05-13] VITALS: Ht 177.8 cm; Wt 128.1 kg
[2022-05-13] VITALS (8 sets, daily range): BP systolic 113–129; BP diastolic 51–77
[~2022-05-13 17:15] MED LIST changes: +BUMETANIDE2 MG PO; +ISOSORBIDE MON120 MG PO; +OXYCODONE HCL5 MG PO
[2022-05-13 17:34] LABS: MEAN CELL VOLUME 94.4 fl (80.0-94.0); MEAN CORPUSCULAR HGB 30.7 pg (27.0-31.0); MEAN CORPUSCULAR HGB CONC 32.5 g/dl (33.0-37.0); MEAN PLATELET VOLUME 10.2 fl (9.6-12.3); PLATELET COUNT AUTOMATED 217 10*3/uL (130-400); RED BLOOD COUNT 2.15 10*6/uL (4.50-5.90); RED CELL DISTRI WIDTH 14.6 % (0-14.5); WHITE BLOOD COUNT 8.7 10*3/uL (4.8-10.8)
[2022-05-13 17:36] LABS: HEMATOCRIT 20.3 % (42.0-52.0); MANUAL DIFF REFLEX YES
[2022-05-13 17:47] LABS: ACT PARTIAL THROMBO TIME 35.9 SECONDS (20.0-32.1); INTERNATIONAL NORM RATIO 1.3 (2.0-3.5)
[2022-05-13 17:54] LABS: CREATININE 8.77 mg/dL (0.70-1.30); POTASSIUM 4.8 mmol/L (3.5-5.1); TOTAL PROTEIN 7.1 gm/dL (6.4-8.2)
[2022-05-13 18:05] LABS: BASOPHILS 1 % (0-1); BURR CELLS FEW; PLATELET SUFFICIENCY NORMAL (NORMAL); POLYCHROMASIA SLIGHT; TOTAL CELLS COUNTED 100 #CELLS
[2022-05-14] VITALS (9 sets, daily range): BP systolic 101–123; BP diastolic 68–85
[2022-05-14 04:22] LABS: BASO % 0.2 % (0.0-1.0); EOS # 0.2 10*3/uL (0.0-0.4); EOS % 2.2 % (1.0-4.0); HEMATOCRIT 23.6 % (42.0-52.0); LYMPH % 11.2 % (27.0-41.0); MEAN CORPUSCULAR HGB 30.3 pg (27.0-31.0); MEAN CORPUSCULAR HGB CONC 32.2 g/dl (33.0-37.0); MEAN PLATELET VOLUME 10.6 fl (9.6-12.3); MONO # 0.7 10*3/uL (0.1-1.0); MONO % 8.3 % (3.0-9.0); NEUT # 6.9 10*3/uL (2.3-7.9); NEUT % 77.2 % (47.0-73.0); PLATELET COUNT AUTOMATED 249 10*3/uL (130-400); RED BLOOD COUNT 2.51 10*6/uL (4.50-5.90); RED CELL DISTRI WIDTH 15.4 % (0-14.5); WHITE BLOOD COUNT 8.9 10*3/uL (4.8-10.8)
[2022-05-14 04:47] LABS: CREATININE 9.02 mg/dL (0.70-1.30); POTASSIUM 5.3 mmol/L (3.5-5.1)
[2022-05-14 04:49] LABS: TOTAL PROTEIN 7.7 gm/dL (6.4-8.2)
[2022-05-14 04:52] LABS: ACT PARTIAL THROMBO TIME 34.5 SECONDS (20.0-32.1); INTERNATIONAL NORM RATIO 1.3 (2.0-3.5)
[2022-05-14 04:53] LABS: FREE T4 0.7 ng/dl (0.76-1.46); THYROID STIM HORMONE (HS) 2.34 uIU/ml (0.358-4.75)
[2022-05-14] MEDS ORDERED: PLAVIX75 M1 PO (15:42)
[2022-05-14 22:26] LABS: BASO % 0.2 % (0.0-1.0); EOS # 0.2 10*3/uL (0.0-0.4); HEMATOCRIT 23.7 % (42.0-52.0); LYMPH # 0.9 10*3/uL (1.3-4.4); LYMPH % 9.7 % (27.0-41.0); MEAN CELL VOLUME 92.2 fl (80.0-94.0); MEAN CORPUSCULAR HGB 30.4 pg (27.0-31.0); MEAN CORPUSCULAR HGB CONC 32.9 g/dl (33.0-37.0); MEAN PLATELET VOLUME 10.4 fl (9.6-12.3); MONO # 0.7 10*3/uL (0.1-1.0); MONO % 7.3 % (3.0-9.0); NEUT # 7.6 10*3/uL (2.3-7.9); NEUT % 79.8 % (47.0-73.0); PLATELET COUNT AUTOMATED 241 10*3/uL (130-400); RED BLOOD COUNT 2.57 10*6/uL (4.50-5.90); RED CELL DISTRI WIDTH 15.2 % (0-14.5); WHITE BLOOD COUNT 9.6 10*3/uL (4.8-10.8)
[2022-05-15] VITALS (9 sets, daily range): BP systolic 104–158; BP diastolic 50–83
[2022-05-15 01:00] LABS: ARTERIAL BLOOD GAS PH 7.321 (7.35-7.45); ARTERIAL BLOOD GAS PO2 104.5 (80-90)
[2022-05-15 01:01] LABS: ABG BASE EXCESS -6.4 mmol/L (-2.0-2.0)
[2022-05-15 01:18] LABS: CREATININE 7.74 mg/dL (0.70-1.30); POTASSIUM 4.5 mmol/L (3.5-5.1)
[2022-05-15 06:12] LABS: BASO % 0.2 % (0.0-1.0); EOS # 0.2 10*3/uL (0.0-0.4); EOS % 2.8 % (1.0-4.0); HEMATOCRIT 25.1 % (42.0-52.0); LYMPH # 1.1 10*3/uL (1.3-4.4); LYMPH % 12.9 % (27.0-41.0); MEAN CELL VOLUME 90.6 fl (80.0-94.0); MEAN CORPUSCULAR HGB CONC 33.1 g/dl (33.0-37.0); MEAN PLATELET VOLUME 10.6 fl (9.6-12.3); MONO # 0.7 10*3/uL (0.1-1.0); MONO % 7.9 % (3.0-9.0); NEUT # 6.5 10*3/uL (2.3-7.9); NEUT % 75.5 % (47.0-73.0); PLATELET COUNT AUTOMATED 238 10*3/uL (130-400); RED BLOOD COUNT 2.77 10*6/uL (4.50-5.90); RED CELL DISTRI WIDTH 15.4 % (0-14.5); WHITE BLOOD COUNT 8.6 10*3/uL (4.8-10.8)
[2022-05-15 06:14] LABS: POTASSIUM 4.5 mmol/L (3.5-5.1); TOTAL PROTEIN 7.4 gm/dL (6.4-8.2)
[2022-05-15 06:20] LABS: CREATININE 7.81 mg/dL (0.70-1.30)
[2022-05-16] VITALS: BP 127/65
[2022-05-16 06:20] LABS: BASO % 0.5 % (0.0-1.0); EOS # 0.3 10*3/uL (0.0-0.4); EOS % 3.4 % (1.0-4.0); HEMATOCRIT 26.3 % (42.0-52.0); LYMPH # 1.4 10*3/uL (1.3-4.4); LYMPH % 18.5 % (27.0-41.0); MEAN CELL VOLUME 91.6 fl (80.0-94.0); MEAN CORPUSCULAR HGB 29.6 pg (27.0-31.0); MEAN CORPUSCULAR HGB CONC 32.3 g/dl (33.0-37.0); MEAN PLATELET VOLUME 10.9 fl (9.6-12.3); MONO # 0.8 10*3/uL (0.1-1.0); MONO % 9.9 % (3.0-9.0); NEUT # 5.1 10*3/uL (2.3-7.9); NEUT % 66.8 % (47.0-73.0); PLATELET COUNT AUTOMATED 251 10*3/uL (130-400); POTASSIUM 3.8 mmol/L (3.5-5.1); RED BLOOD COUNT 2.87 10*6/uL (4.50-5.90); RED CELL DISTRI WIDTH 15.7 % (0-14.5); WHITE BLOOD COUNT 7.6 10*3/uL (4.8-10.8)
[2022-05-16 06:40] LABS: CREATININE 5.98 mg/dL (0.70-1.30); TOTAL PROTEIN 7.2 gm/dL (6.4-8.2)
[2022-05-16 08:00] VITALS: BP 130/55
[2022-05-16 11:08] LABS: VITAMIN D, 25-HYDROXY 28.5 ng/mL (30-100)
[2022-05-16 12:00] VITALS: BP 133/59
[2022-05-16 14:57] VITALS: BP 128/59
[2022-05-16 20:00] VITALS: BP 123/68
[2022-05-17] VITALS: BP 113/58
[2022-05-17 06:23] LABS: BASO % 0.4 % (0.0-1.0); EOS # 0.3 10*3/uL (0.0-0.4); EOS % 3.1 % (1.0-4.0); HEMATOCRIT 25.3 % (42.0-52.0); LYMPH # 1.4 10*3/uL (1.3-4.4); LYMPH % 16.6 % (27.0-41.0); MEAN CELL VOLUME 92.3 fl (80.0-94.0); MEAN CORPUSCULAR HGB 29.6 pg (27.0-31.0); MEAN PLATELET VOLUME 10.6 fl (9.6-12.3); MONO # 0.8 10*3/uL (0.1-1.0); MONO % 9.6 % (3.0-9.0); NEUT # 5.7 10*3/uL (2.3-7.9); NEUT % 69.7 % (47.0-73.0); PLATELET COUNT AUTOMATED 235 10*3/uL (130-400); RED BLOOD COUNT 2.74 10*6/uL (4.50-5.90); RED CELL DISTRI WIDTH 15.9 % (0-14.5); WHITE BLOOD COUNT 8.2 10*3/uL (4.8-10.8)
[2022-05-17 06:59] LABS: CREATININE 6.95 mg/dL (0.70-1.30)
[2022-05-17 08:07] LABS: HEPATITIS B SURFACE AB Non Reactive (.); HEPATITIS B SURFACE AG Positive (Negative)
[2022-05-17 12:00] VITALS: BP 132/53
[2022-05-17 16:00] VITALS: BP 126/62
[2022-05-17 20:00] VITALS: BP 123/69
[2022-05-18] VITALS: BP 122/74
[2022-05-18 06:37] LABS: BASO % 0.4 % (0.0-1.0); EOS # 0.3 10*3/uL (0.0-0.4); EOS % 3.5 % (1.0-4.0); HEMATOCRIT 26.4 % (42.0-52.0); LYMPH # 1.3 10*3/uL (1.3-4.4); LYMPH % 16.5 % (27.0-41.0); MEAN CELL VOLUME 91.7 fl (80.0-94.0); MEAN CORPUSCULAR HGB 29.5 pg (27.0-31.0); MEAN CORPUSCULAR HGB CONC 32.2 g/dl (33.0-37.0); MEAN PLATELET VOLUME 10.6 fl (9.6-12.3); MONO # 0.7 10*3/uL (0.1-1.0); MONO % 8.6 % (3.0-9.0); NEUT # 5.7 10*3/uL (2.3-7.9); NEUT % 70.5 % (47.0-73.0); PLATELET COUNT AUTOMATED 252 10*3/uL (130-400); RED BLOOD COUNT 2.88 10*6/uL (4.50-5.90); RED CELL DISTRI WIDTH 15.6 % (0-14.5); WHITE BLOOD COUNT 8.1 10*3/uL (4.8-10.8)
[2022-05-18 06:51] LABS: CREATININE 5.78 mg/dL (0.70-1.30); POTASSIUM 3.9 mmol/L (3.5-5.1)
[2022-05-18 08:00] VITALS: BP 134/63
[2022-05-18 12:00] VITALS: BP 139/66
[2022-05-18] MEDS ORDERED: GABAPENTIN100 M2 PO (15:46)
== END 2022-05-18 17:30 | disposition home health service (06) | DRG 280 ==
LOC: ED 17:15 → 4E 18:56 → EDHOLD 18:56 → 4E 05-14 17:39
PROVIDERS: Emergency Medicine; Internal Medicine; Internal Medicine Nephrology; Student in an Organized Health Care Education/Training Program; ADMIT Internal Medicine; ATTEND Internal Medicine
PROC: 30233N1 Transfusion of Nonautologous Red Blood Cells into Peripheral Vein, Percutaneous Approach (ICD-10-PCS; principal; 2022-05-13)
PROC: 5A1D70Z Performance of Urinary Filtration, Intermittent, Less than 6 Hours Per Day (ICD-10-PCS; 2022-05-14)
PROC: 5A1D70Z Performance of Urinary Filtration, Intermittent, Less than 6 Hours Per Day (ICD-10-PCS; 2022-05-15)
PROC: 30233N1 Transfusion of Nonautologous Red Blood Cells into Peripheral Vein, Percutaneous Approach (ICD-10-PCS; 2022-05-15)
PROC: 5A1D70Z Performance of Urinary Filtration, Intermittent, Less than 6 Hours Per Day (ICD-10-PCS; 2022-05-17)
PROC: BD15YZZ Fluoroscopy of Upper GI using Other Contrast (ICD-10-PCS; 2022-05-18)
DX: I21.4 Non-ST elevation (NSTEMI) myocardial infarction (principal); I50.33 Acute on chronic diastolic (congestive) heart failure; N18.6 End stage renal disease; E44.0 Moderate protein-calorie malnutrition; E87.1 Hypo-osmolality and hyponatremia; E87.2 Acidosis; K92.2 Gastrointestinal hemorrhage, unspecified; I13.2 Hypertensive heart and chronic kidney disease with heart failure and with stage 5 chronic kidney disease, or end stage renal disease; Z68.41 Body mass index [BMI] 40.0-44.9, adult; E11.22 Type 2 diabetes mellitus with diabetic chronic kidney disease; E11.65 Type 2 diabetes mellitus with hyperglycemia; D64.9 Anemia, unspecified; I25.10 Atherosclerotic heart disease of native coronary artery without angina pectoris; E66.9 Obesity, unspecified; E78.5 Hyperlipidemia, unspecified; K21.9 Gastro-esophageal reflux disease without esophagitis; E87.5 Hyperkalemia; Z79.4 Long term (current) use of insulin; Z88.2 Allergy status to sulfonamides; Z88.0 Allergy status to penicillin; Z90.49 Acquired absence of other specified parts of digestive tract; Z86.19 Personal history of other infectious and parasitic diseases; Z99.2 Dependence on renal dialysis

== ENCOUNTER 2022-05-24 13:08 | Emergency (ER) | payer OTHER ==
[~2022-05-24] VITALS: Ht 177.8 cm; Wt 129.3 kg
[~2022-05-24 13:08] MED LIST changes: +GABAPENTIN100 M2 PO
[2022-05-24 13:11] VITALS: BP 146/82
[2022-05-24 13:58] LABS: BASO # 0.1 10*3/uL (0.0-0.1); BASO % 0.5 % (0.0-1.0); EOS # 0.3 10*3/uL (0.0-0.4); EOS % 2.7 % (1.0-4.0); HEMATOCRIT 26.5 % (42.0-52.0); MEAN CELL VOLUME 92.3 fl (80.0-94.0); MEAN CORPUSCULAR HGB 30.3 pg (27.0-31.0); MEAN CORPUSCULAR HGB CONC 32.8 g/dl (33.0-37.0); MEAN PLATELET VOLUME 9.9 fl (9.6-12.3); MONO # 0.9 10*3/uL (0.1-1.0); MONO % 8.9 % (3.0-9.0); NEUT # 7.9 10*3/uL (2.3-7.9); NEUT % 77.5 % (47.0-73.0); PLATELET COUNT AUTOMATED 218 10*3/uL (130-400); RED BLOOD COUNT 2.87 10*6/uL (4.50-5.90); RED CELL DISTRI WIDTH 15.8 % (0-14.5); WHITE BLOOD COUNT 10.1 10*3/uL (4.8-10.8)
[2022-05-24 14:14] LABS: CREATININE 7.38 mg/dL (0.70-1.30); TOTAL PROTEIN 7.2 gm/dL (6.4-8.2); URIC ACID 6.3 mg/dL (3.5-7.2)
[2022-05-24] MEDS ORDERED: HYDROCODONE-AC1 EAC1 PO (15:37)
[2022-05-24] MEDS ORDERED: CEPHALEXIN500 M1 PO (15:37)
== END 2022-05-24 15:40 | disposition home or self-care (01) ==
LOC: ED 13:08
PROVIDERS: Physician Assistant
DX: M79.641 Pain in right hand (principal); Z88.0 Allergy status to penicillin; Z88.2 Allergy status to sulfonamides; Z79.899 Other long term (current) drug therapy; Z90.49 Acquired absence of other specified parts of digestive tract; Z90.89 Acquired absence of other organs; Z98.890 Other specified postprocedural states

== ENCOUNTER 2022-05-28 05:32 | Emergency (ER) | payer OTHER ==
[~2022-05-28] VITALS: Ht 177.8 cm; Wt 136.5 kg
[~2022-05-28 05:32] MED LIST changes: +CEPHALEXIN500 M1 PO; +HYDROCODONE-AC1 EAC1 PO
[2022-05-28 05:35] VITALS: BP 104/36
[2022-05-28 06:04] LABS: BASO % 0.5 % (0.0-1.0); EOS # 0.2 10*3/uL (0.0-0.4); EOS % 3.1 % (1.0-4.0); HEMATOCRIT 23.9 % (42.0-52.0); LYMPH # 0.8 10*3/uL (1.3-4.4); MEAN CELL VOLUME 95.6 fl (80.0-94.0); MEAN CORPUSCULAR HGB CONC 31.4 g/dl (33.0-37.0); MEAN PLATELET VOLUME 10.5 fl (9.6-12.3); MONO # 0.7 10*3/uL (0.1-1.0); MONO % 8.8 % (3.0-9.0); NEUT # 5.7 10*3/uL (2.3-7.9); NEUT % 76.1 % (47.0-73.0); PLATELET COUNT AUTOMATED 216 10*3/uL (130-400); RED CELL DISTRI WIDTH 16.2 % (0-14.5); WHITE BLOOD COUNT 7.5 10*3/uL (4.8-10.8)
[2022-05-28 06:20] LABS: CREATININE 8.87 mg/dL (0.70-1.30); POTASSIUM 4.2 mmol/L (3.5-5.1); TOTAL PROTEIN 7.6 gm/dL (6.4-8.2)
== END 2022-05-28 07:40 | disposition home or self-care (01) ==
LOC: ED 05:32
PROVIDERS: Emergency Medicine
DX: R06.02 Shortness of breath (principal); E83.51 Hypocalcemia; Z88.0 Allergy status to penicillin; Z88.2 Allergy status to sulfonamides; Z79.899 Other long term (current) drug therapy; Z90.89 Acquired absence of other organs; Z98.890 Other specified postprocedural states; Z90.49 Acquired absence of other specified parts of digestive tract

== ENCOUNTER 2022-05-29 03:40 | Emergency (ER) | payer OTHER ==
[~2022-05-29] VITALS: Wt 138.3 kg
[2022-05-29 03:58] LABS: BASO % 0.4 % (0.0-1.0); EOS # 0.2 10*3/uL (0.0-0.4); EOS % 2.9 % (1.0-4.0); HEMATOCRIT 22.9 % (42.0-52.0); LYMPH # 0.8 10*3/uL (1.3-4.4); LYMPH % 14.9 % (27.0-41.0); MEAN CELL VOLUME 92.7 fl (80.0-94.0); MEAN CORPUSCULAR HGB 30.4 pg (27.0-31.0); MEAN CORPUSCULAR HGB CONC 32.8 g/dl (33.0-37.0); MEAN PLATELET VOLUME 10.3 fl (9.6-12.3); MONO # 0.5 10*3/uL (0.1-1.0); MONO % 9.8 % (3.0-9.0); NEUT # 3.9 10*3/uL (2.3-7.9); NEUT % 71.5 % (47.0-73.0); PLATELET COUNT AUTOMATED 232 10*3/uL (130-400); RED BLOOD COUNT 2.47 10*6/uL (4.50-5.90); RED CELL DISTRI WIDTH 16.3 % (0-14.5); WHITE BLOOD COUNT 5.5 10*3/uL (4.8-10.8)
[2022-05-29 04:14] LABS: CREATININE 5.99 mg/dL (0.70-1.30); TOTAL PROTEIN 7.3 gm/dL (6.4-8.2)
[2022-05-29 06:06] VITALS: BP 130/80
== END 2022-05-29 05:23 | disposition short-term general hospital (02) ==
LOC: ED 03:40
PROVIDERS: Emergency Medicine
DX: E87.70 Fluid overload, unspecified (principal); R06.02 Shortness of breath; N18.6 End stage renal disease; Z99.2 Dependence on renal dialysis; Z90.49 Acquired absence of other specified parts of digestive tract; Z79.899 Other long term (current) drug therapy; Z79.82 Long term (current) use of aspirin; Z88.0 Allergy status to penicillin; Z88.2 Allergy status to sulfonamides

== ENCOUNTER → 2022-12-21 | Outpatient (CLI) | payer OTHER ==
[2022-12-21 11:12] LABS: BASO % 0.5 % (0.0-1.0); EOS # 0.3 10*3/uL (0.0-0.4); EOS % 3.8 % (1.0-4.0); HEMATOCRIT 32.5 % (42.0-52.0); LYMPH # 1.5 10*3/uL (1.3-4.4); LYMPH % 22.7 % (27.0-41.0); MEAN CELL VOLUME 84.9 fl (80.0-94.0); MEAN CORPUSCULAR HGB 28.5 pg (27.0-31.0); MEAN CORPUSCULAR HGB CONC 33.5 g/dl (33.0-37.0); MEAN PLATELET VOLUME 10.3 fl (9.6-12.3); MONO # 0.6 10*3/uL (0.1-1.0); MONO % 9.2 % (3.0-9.0); NEUT # 4.1 10*3/uL (2.3-7.9); NEUT % 63.5 % (47.0-73.0); PLATELET COUNT AUTOMATED 215 10*3/uL (130-400); RED BLOOD COUNT 3.83 10*6/uL (4.50-5.90); RED CELL DISTRI WIDTH 14.3 % (0-14.5); WHITE BLOOD COUNT 6.5 10*3/uL (4.8-10.8)
[2022-12-21 11:32] LABS: BILIRUBIN Negative (Negative); BLOOD 1+ (Negative); CLARITY Clear (Clear); COLOR Yellow (Yellow); GLUCOSE Trace (Negative); KETONE Negative (Negative); LEUKO ESTERASE Negative (Negative); NITRITE Negative (Negative); PH 5.5 (4.5-8.0); SPECIFIC GRAVITY 1.015 (1.001-1.030); UROBILINOGEN 0.2 E.U./dl (0.0-1.0)
[2022-12-21 11:39] LABS: URINE CREATININE RANDOM 66.77 mg/dL
[2022-12-21 11:59] LABS: POTASSIUM 4.6 mmol/L (3.4-5.1)
[2022-12-21 12:03] LABS: VITAMIN D, 25-HYDROXY 36.8 ng/mL (30-100)
[2022-12-21 12:29] LABS: WBC 0-2 wbc/hpf (0-5)
[2022-12-21 12:30] LABS: BACTERIA 1+; MUCOUS TRACE
== END | disposition home or self-care (01) ==
LOC: LAB 10:47
PROVIDERS: ATTEND Internal Medicine Nephrology
DX: N18.9 Chronic kidney disease, unspecified (principal); D63.1 Anemia in chronic kidney disease; N25.81 Secondary hyperparathyroidism of renal origin; Z79.899 Other long term (current) drug therapy

== ENCOUNTER 2023-01-27 09:55 | Inpatient (IN) | payer OTHER ==
[~2023-01-27] VITALS: Ht 177.8 cm; Wt 129.3 kg
[2023-01-27 10:00] VITALS: BP 135/72
[2023-01-27 10:31] LABS: BASO % 0.2 % (0.0-1.0); EOS # 0.1 10*3/uL (0.0-0.4); EOS % 1.1 % (1.0-4.0); HEMATOCRIT 25.7 % (42.0-52.0); LYMPH # 0.6 10*3/uL (1.3-4.4); LYMPH % 4.5 % (27.0-41.0); MEAN CELL VOLUME 82.9 fl (80.0-94.0); MEAN CORPUSCULAR HGB 28.7 pg (27.0-31.0); MEAN CORPUSCULAR HGB CONC 34.6 g/dl (33.0-37.0); MEAN PLATELET VOLUME 10.2 fl (9.6-12.3); MONO # 0.8 10*3/uL (0.1-1.0); MONO % 5.7 % (3.0-9.0); NEUT # 11.7 10*3/uL (2.3-7.9); NEUT % 87.7 % (47.0-73.0); PLATELET COUNT AUTOMATED 182 10*3/uL (130-400); WHITE BLOOD COUNT 13.3 10*3/uL (4.8-10.8)
[2023-01-27 10:49] LABS: ACT PARTIAL THROMBO TIME 31.6 SECONDS (20.0-32.1); INTERNATIONAL NORM RATIO 1.2 (2.0-3.5)
[2023-01-27 11:12] LABS: POTASSIUM 3.3 mmol/L (3.4-5.1)
[2023-01-27 12:52] VITALS: BP 128/69
[2023-01-27 14:01] VITALS: BP 130/86
[2023-01-27 14:30] VITALS: BP 145/56
[2023-01-27 14:59] LABS: ARTERIAL BLOOD GAS PH 7.271 (7.35-7.45); ARTERIAL BLOOD GAS PO2 63.4 (80-90)
[2023-01-27 15:01] LABS: ABG BASE EXCESS -9.3 mmol/L (-2.0-2.0)
== END 2023-01-27 18:00 | DRG 871 ==
LOC: ED 09:55 → EDHOLD 12:41 → ICCU 13:16
PROVIDERS: Emergency Medicine; Internal Medicine; ADMIT Student in an Organized Health Care Education/Training Program; ATTEND Student in an Organized Health Care Education/Training Program
PROC: 5A12012 Performance of Cardiac Output, Single, Manual (ICD-10-PCS; principal; 2023-01-27)
PROC: 5A09357 Assistance with Respiratory Ventilation, Less than 24 Consecutive Hours, Continuous Positive Airway Pressure (ICD-10-PCS; 2023-01-27)
DX: A41.9 Sepsis, unspecified organism (principal); I21.4 Non-ST elevation (NSTEMI) myocardial infarction; J96.01 Acute respiratory failure with hypoxia; J18.9 Pneumonia, unspecified organism; J96.21 Acute and chronic respiratory failure with hypoxia; J96.22 Acute and chronic respiratory failure with hypercapnia; N18.6 End stage renal disease; I50.33 Acute on chronic diastolic (congestive) heart failure; E87.1 Hypo-osmolality and hyponatremia; I13.2 Hypertensive heart and chronic kidney disease with heart failure and with stage 5 chronic kidney disease, or end stage renal disease; Z88.0 Allergy status to penicillin; R65.20 Severe sepsis without septic shock; I25.10 Atherosclerotic heart disease of native coronary artery without angina pectoris; G47.33 Obstructive sleep apnea (adult) (pediatric); E87.6 Hypokalemia; E83.51 Hypocalcemia; E11.22 Type 2 diabetes mellitus with diabetic chronic kidney disease; D64.9 Anemia, unspecified; E87.8 Other disorders of electrolyte and fluid balance, not elsewhere classified; Z88.2 Allergy status to sulfonamides; Z90.49 Acquired absence of other specified parts of digestive tract; Z86.19 Personal history of other infectious and parasitic diseases; Z95.5 Presence of coronary angioplasty implant and graft